=== PATIENT | male | born 1945 | race Caucasian/White ===

== ENCOUNTER → 2017-01-05 | Day surgery (SDC) | payer OTHER, MEDICARE ==
[~2017-01-05] VITALS: Ht 170.2 cm; Wt 88.5 kg
[~2017-01-05] MED LIST: ADVAIR 250-501 EACH; ASPIRIN EC81 M1 PO; ATORVASTATIN CA40 M1 PO; ESCITALOPRAM OX10 MG PO; FENOFIBRATE145 M1 PO; INVOKANA100 M1 PO; JANUVIA100 M1 PO; LOTREL 5-20 MG1 EACH PO; METFORMIN HCL1000 M3 PO; METOPROLOL SUC100 M2 PO
--- NOTE | 2017-01-05 10:55 | Operative Report ---
Operative/Inv Procedure Report Surgery Date: 01/05/17 Name of Procedure: Cataract extraction lens implantation left eye Pre-Operative Diagnosis: Age-related cataract left eye 20/25 vision 20/100 glare vision Post-Operative Diagnosis: Same Estimated Blood Loss: none Surgeon/Pot Fireman: TRACE RIVERA,IVY Horowitz Anesthesia: local monitored anesthesi Complications: None Operative/Procedure Note Note: The patient was brought to the operating room standard monitoring equipment was attached the patient was prepped and draped in the usual fashion for intraocular surgery. A lid speculum was placed to retract the lids. The case was begun by making a temporal incision with a 2.4 mm keratome. The eye was stabilized with a Ford ring during this incision. 1 mL of non-preserved lidocaine was introduced into the anterior chamber to provide anesthesia. The anterior chamber was then filled and deepened with viscoelastic. A curvilinear capsulorrhexis was achieved using a 30-gauge needle and is a cystotome and capsulorrhexis was finished using a Utrata forceps. A second or paracentesis incision was made temporally with a 1 mm MVR blade. The lens was then hydrodissected with balanced salt solution and found to be rotatable. The lens was emulsified using phacoemulsification and a modified four-quadrant cracking technique. The residual cortical material was removed using automated irrigation and aspiration and as much of the anterior capsular rim was cleaned as well as possible. The posterior capsule was cleaned first with the automated machine on a low setting and then manually with a Adan squeegee. The capsular bag was deepened with viscoelastic. The lens a Akreos AO 60 21.5 Diopter placed into the bag under direct visualization and rotated so that the haptics were at 12 and 6:00. Viscoelastic was then removed from the eye by flushing it out and then by automated irrigation and aspiration. The eye was pressurized to a normal tone. 1/10 of a cc of vancomycin solution was introduced into the anterior chamber to provide antibiotic prophylaxis. The wounds were sealed by hydrating the stroma adjacent to them and the eye was left at a proper tone after the wounds were checked and found not to be leaking. The lid speculum was removed from the orbit. Antibiotic and steroid drops were placed on the eye and then the eye was shielded. Monitoring equipment was removed from the patient and the patient was removed from the operative suite to the holding area. The patient tolerated the procedure well and will be seen in the office tomorrow.
== END ==
LOC: STS 01:47
DX: H25.9 Unspecified age-related cataract (principal); J45.909 Unspecified asthma, uncomplicated; I10 Essential (primary) hypertension; I25.10 Atherosclerotic heart disease of native coronary artery without angina pectoris; Z95.1 Presence of aortocoronary bypass graft
CPT/HCPCS: J2250; V2632

== ENCOUNTER → 2017-01-20 | Day surgery (SDC) | payer OTHER, MEDICARE ==
[~2017-01-20] VITALS: Ht 170.2 cm; Wt 88.5 kg
--- NOTE | 2017-01-20 12:18 | Operative Report ---
Operative/Inv Procedure Report Surgery Date: 01/20/17 Name of Procedure: Cataract extraction lens implantation right eye Pre-Operative Diagnosis: Age-related cataract right eye 20/25 vision 20/50 glare vision Post-Operative Diagnosis: Same Estimated Blood Loss: none Surgeon/Mobility Specialist: TRACE RIVERA,IVY Horowitz Anesthesia: local monitored anesthesi Complications: None Operative/Procedure Note Note: The patient was brought to the operating room standard monitoring equipment was attached the patient was prepped and draped in the usual fashion for intraocular surgery. A lid speculum was placed to retract the lids. The case was begun by making 2 partial-thickness corneal relaxing incisions at 67. A temporal incision with a 2.4 mm keratome. The eye was stabilized with a Ford ring during this incision. 1 mL of non-preserved lidocaine was introduced into the anterior chamber to provide anesthesia. The anterior chamber was then filled and deepened with viscoelastic. A curvilinear capsulorrhexis was achieved using a 30-gauge needle and is a cystotome and capsulorrhexis was finished using a Utrata forceps. A second or paracentesis incision was made temporally with a 1 mm MVR blade. The lens was then hydrodissected with balanced salt solution and found to be rotatable. The lens was emulsified using phacoemulsification and a modified four-quadrant cracking technique. The residual cortical material was removed using automated irrigation and aspiration and as much of the anterior capsular rim was cleaned as well as possible. The posterior capsule was cleaned first with the automated machine on a low setting and then manually with a Adan squeegee. The capsular bag was deepened with viscoelastic. The lens a Akreos AO60 21.5 Diopter placed into the bag under direct visualization and rotated so that the haptics were at 12 and 6:00. Viscoelastic was then removed from the eye by flushing it out and then by automated irrigation and aspiration. The eye was pressurized to a normal tone. 1/10 of a cc of vancomycin solution was introduced into the anterior chamber to provide antibiotic prophylaxis. The wounds were sealed by hydrating the stroma adjacent to them and the eye was left at a proper tone after the wounds were checked and found not to be leaking. The lid speculum was removed from the orbit. Antibiotic and steroid drops were placed on the eye and then the eye was shielded. Monitoring equipment was removed from the patient and the patient was removed from the operative suite to the holding area. The patient tolerated the procedure well and will be seen in the office tomorrow.
== END ==
LOC: STS 01:54
DX: H25.9 Unspecified age-related cataract (principal); E11.9 Type 2 diabetes mellitus without complications; Z79.84 Long term (current) use of oral hypoglycemic drugs; I10 Essential (primary) hypertension; I25.10 Atherosclerotic heart disease of native coronary artery without angina pectoris
CPT/HCPCS: J2250; V2632; V2788-GY

== ENCOUNTER 2017-10-23 12:55 | Inpatient (IN) | payer OTHER, MEDICARE ==
[~2017-10-23] VITALS: Ht 172.7 cm; Wt 88.5 kg
[~2017-10-23 12:55] MED LIST changes: -ADVAIR 250-501 EACH; +ADVAIR 250-501 EACH INH
--- NOTE | 2017-10-23 14:16 | ED INFLUENZA/URI COMPLAINT ---
History of Present Illness General Chief Complaint: General Adult Stated Complaint: ?FLU, HEADACHE, BODY ACHES, DIAREHHA, FEVER Source: patient Exam Limitations: no limitations Vital Signs & Intake/Output Vital Signs & Intake/Output Vital Signs Date Time Temp Pulse Resp B/P B/P Pulse O2 O2 Flow FiO2 Mean Ox Delivery Rate 10/24 1026 94 Nasal 2.0L Cannula 10/24 1022 Nasal 2.0L Cannula 10/24 0824 86 120/70 10/24 0800 94 Nasal 2.0L Cannula 10/24 0630 97.6 86 22 120/70 92 Nasal 2.0L Cannula 10/23 2353 128/74 92 Nasal 2.0L Cannula 10/23 2318 98.1 96 18 95 Nasal Cannula 10/23 2217 Nasal 2.0L Cannula 10/23 2037 98 132/78 10/23 1846 97.5 91 18 132/78 94 Nasal 2.0L Cannula 10/23 1800 Nasal 2.0L Cannula 10/23 1626 99.9 10/23 1623 99.9 103 18 121/55 95 Nasal 2.0L Cannula 10/23 1603 Room Air Room Air 10/23 1450 96 ED Intake and Output 10/24 0000 10/23 1200 Intake Total 780 Output Total 450 Balance 330 Intake, IV 300 Intake, Oral 480 Number 0 Bowel Movements Output, Urine 450 Patient 195 lb Weight Weight Reported by Patient Measurement Method Allergies Coded Allergies: bee venom protein (honey bee) (HIVES, DYSPNEA 10/23/17) codeine (UNKNOWN 10/23/17) oxycodone (From PERCOCET) (UNKNOWN 10/23/17) Uncoded Allergies: RED BIRCH (RASH 09/20/13) Reconcile Medications Albuterol Sulfate (Ventolin Hfa) 90 MCG HFA.AER.AD 2 PUF INH AD PRN RESP ( Reported) Amlodipine Besylate/Benazepril (Lotrel 5-20 MG Capsule) 5 MG-20 MG CAPSULE 1 CAP PO DAILY HTN (Reported) Aspirin (Ecotrin*) 81 MG TABLET.DR 1 TAB PO DAILY PROPHO (Reported) Canagliflozin (Invokana) 100 MG TABLET 1 TAB PO DAILY DM II (Reported) Cholecalciferol (Vitamin D3) (Vitamin D) 10,000 UNIT CAPSULE 1 CAP PO DAILY SUPPLEMENT (Reported) Cyanocobalamin (Vitamin B-12) (Cyanocobalamin Injection) 1,000 MCG/ML VIAL 1 ML IM Q2W SUPPLEMENT (Reported) Escitalopram Oxalate 10 MG TABLET 1 TAB PO DAILY ANXIETY (Reported) Fenofibrate Nanocrystallized (Fenofibrate) 145 MG TABLET 1 TAB PO DAILY TRIGLYCERIDES (Reported) Fluticasone/Salmeterol (Advair 250-50 Diskus) 250 MCG-50 MCG/DOSE BLST.W.DEV 1 PUFF INH PRN ASTHMA (Reported) Magnesium Oxide (Magnesium) 400 MG CAPSULE 1 CAP PO DAILY SUPPLEMENT ( Reported) Metformin HCl (Metformin HCl ER) 500 MG TAB.ER.24H 1 TAB PO 4XDAILY DM ( Reported) Metoprolol Succinate 100 MG TAB.ER.24H 1 TAB PO DAILY HTN (Reported) Omeprazole 20 MG CAPSULE.DR 1 CAP PO DAILY GI (Reported) Rosuvastatin Calcium (Crestor) 20 MG TABLET 1 TAB PO DAILY CHOLESTEROL ( Reported) Sitagliptin Phosphate (Januvia) 100 MG TABLET 1 TAB PO DAILY DM II (Reported) Triage Note: PT TO ED FOR SUBJECTIVE FEVER, CHILLS, NAUSEA, DIARRHEA X 12 HOURS. Triage Nurses Notes Reviewed? yes Onset: Gradual Duration: getting worse Timing: recent history Severity: severe Severity Numbers: 7 HPI: Patient is a 72-year-old male with a past history of coronary artery disease status post bypass surgery, diabetes, hypertension, hyperlipidemia COPD/asthma who presents emergency room with a 2 day history of gradual onset of cough chills tactile fevers body aches headache nausea without emesis generally weakness and fatigue Positive for wheezing Patient can tolerate by mouth however has had decreased intake due to symptoms Denies any chest pain and arm pain jaw pain leg swelling hemoptysis shortness of breath dyspnea on exertion Negative sick contacts at home Patient tried Symbicort and nebulizer treatments with minimal relief of wheezing Patient does state that HE WAS GIVEN ZPAK TWO WEEKS AGO FOR URI SYMPTOMS (Goran GUERRA,Sebastián) Past History Travel History Traveled to [place] past 21 day No Medical History Any Pertinent Medical History? see below for history Neurological: NONE EENT: NONE Cardiovascular: hypertension, hyperlipidemia, "BYPASS" Respiratory: asthma, COPD Gastrointestinal: NONE Hepatic: NONE Renal: NONE Musculoskeletal: CHRONIC SHOULDER PAIN Psychiatric: NONE Endocrine: diabetes Blood Disorders: NONE Pneumonia Vaccine: 12/28/06 Surgical History Surgical History: CABG Psychosocial History What is your primary language Sinhala Tobacco Use: Never used ETOH Use: occasional use Illicit Drug Use: denies illicit drug use Family History Hx Contributory? No (Sebastián Sandoval) Review of Systems Review of Systems Constitutional: Reports: see HPI. EENTM: Reports: see HPI. Respiratory: Reports: see HPI. Cardiovascular: Reports: no symptoms. GI: Reports: no symptoms. Genitourinary: Reports: no symptoms. Musculoskeletal: Reports: see HPI. Skin: Reports: no symptoms. Neurological/Psychological: Reports: see HPI, headache. Hematologic/Endocrine: Reports: no symptoms. Immunologic/Allergic: Reports: no symptoms. All Other Systems: Reviewed and Negative (Sebastián Sandoval) Physical Exam Physical Exam General Appearance: no apparent distress, alert, obese Head: atraumatic Eyes: Bilateral: normal appearance, PERRL. Ears, Nose, Throat: normal ENT inspection, moist mucous membrane, hearing grossly normal Neck: normal inspection Respiratory: quiet respiration, decreased breath sounds, wheezing Cardiovascular: regular rate/rhythm Peripheral Pulses: 2+ radial (R) Gastrointestinal: normal bowel sounds, soft, non-tender Extremities: normal inspection, normal capillary refill, normal range of motion, no edema Skin: intact, normal color, warm/dry Core Measures Sepsis Present: Yes Sepsis Focused Exam Completed? Yes (Sebastián Sandoval) Progress Differential Diagnosis: influenza, meningitis, neutropenia, otitis, pneumonia, pharyngitis, sinusitis Plan of Care: Orders Procedure Date/time Status BLOOD CULTURE 10/25 0600 Active CBC WITHOUT DIFFERENTIAL 10/25 0600 Active BASIC ELECTROLYTES PLUS BUN&CR 10/25 0600 Active Consistent Carbohydrate 1 10/24 D Active Consistent Carbohydrate 1 10/24 B Complete RT: Evaluation 10/24 1022 Active CBC WITHOUT DIFFERENTIAL 10/24 0852 Complete BASIC ELECTROLYTES PLUS BUN&CR 10/24 0852 Complete TROPONIN LEVEL 10/24 0300 Complete EKG 10/24 0300 Active LACTIC ACID 10/24 0232 Complete THERAPIST ORDERS 10/24 UNK Complete Admit to inpatient 10/24 UNK Active ECHOCARDIOGRAM 10/24 UNK Active Consistent Carbohydrate 1 10/23 B Complete LACTIC ACID 10/23 2332 Complete TROPONIN LEVEL 10/23 2100 Complete EKG 10/23 2100 Active Vital Signs 10/23 1946 Active Teach/Educate 10/23 1946 Active Pain Treatment and Response 10/23 1946 Active Nutritional Intake, Monitor 10/23 1946 Active Isolation 10/23 1946 Active Intake & Output 01/13 1947 Active Patient Care Conference 10/23 1947 Active Activity/Ambulation 10/23 1947 Active LACTIC ACID 10/23 1800 Complete STREP PNEUMO URINARY ANTIGEN 10/23 1748 Complete LEGIONELLA URINARY ANTIGEN 10/23 1748 Complete URINALYSIS 10/23 1748 Complete Pathway - chart 10/23 1710 Active TRC EVALUATION (GEN) 10/23 1708 Complete OXYGEN SETUP (GEN) 10/23 1708 Active Pathway - chart 10/23 1708 Active House Staff 10/23 1708 Active FingerStick- Glucose 10/23 1613 Active Patient Data 10/23 1607 Active Add-on Test (ER Only) 10/23 1606 Active ED Holding Orders 10/23 1600 Active Admit to inpatient 10/23 1600 Active Vital Signs 10/23 1600 Active Code Status 10/23 1600 Active Add-on Test (ER Only) 10/23 1543 Active Intake & Output 10/23 1521 Complete LACTIC ACID 10/23 1505 Complete D-DIMER 10/23 1505 Complete AEROSOL (GEN) 10/23 1456 Complete BLOOD CULTURE 10/23 1427 Active TROPONIN LEVEL 10/23 1427 Complete COMPREHENSIVE METABOLIC PANEL 10/23 1427 Complete CBC WITHOUT DIFFERENTIAL 10/23 1427 Complete EKG 10/23 1427 Active VIRAL CULTURE 10/23 1304 Active VTE Mechanical Prophylaxis 10/23 UNK Active Vital Signs 10/23 UNK Complete Intake & Output 10/23 UNK Complete FingerStick- Glucose 10/23 UNK Complete Current Medications Sig/Sidney Start time Last Medication Dose Stop Time Status Admin Atorvastatin Calcium 80 MG 1700 10/24 1700 AC (Lipitor) Azithromycin 500 MG DAILY@1600 10/24 1600 CAN (Zithromax) Sodium Chloride 250 ML (Normal Saline 0.9%) Ceftriaxone Sodium 1,000 MG DAILY@1530 10/24 1530 AC (Rocephin) Albuterol Sulfate 3 ML Q4P PRN 10/24 1030 AC (Proventil) Budesonide/ 2 PUF BID 10/23 2200 AC 10/24 Formoterol Fumarate 0825 (Symbicort) Heparin Sodium 5,000 UNIT Q8 10/23 2200 AC 10/24 (Porcine) 0609 Methylprednisolone 40 MG Q8 10/23 2200 AC 10/24 (Solumedrol) 0609 Metoprolol Tartrate 50 MG BID 10/230 AC 10/24 (Lopressor) 0824 Sodium Chloride 1,000 ML Q10H 10/23 1999 AC 10/24 (Normal Saline 0.9%) 10/24 1559 0338 Magnesium Oxide 400 MG DAILY 10/23 1817 AC 10/24 (Mag-Ox) 0823 Omeprazole 20 MG DAILY 10/23 1817 AC 10/24 (Prilosec) 0824 Aspirin Buffered 81 MG DAILY 10/23 1816 AC 10/24 (Ecotrin) 0824 Escitalopram Oxalate 10 MG DAILY 10/23 1816 AC 10/24 (Lexapro) 0824 Fenofibrate 145 MG DAILY 10/23 1816 AC 10/24 (Tricor) 0824 Acetaminophen 650 MG Q6 PRN 10/23 171 AC (Tylenol) Laboratory Tests 10/24/17 1100: Anion Gap 18 H, Estimated GFR 60, BUN/Creatinine Ratio 22.5, CBC w Diff MAN DIFF ORDERED, RBC 4.84, MCV 92.4, MCH 30.6, RDW 14.1, MPV 8.9, Gran % 96.7 H, Lymphocytes % 2.0 L, Monocytes % 1.2 L, Eosinophils % 0, Basophils % 0.1, Absolute Granulocytes 24.3 H, Segmented Neutrophils 65, Band Neutrophils 27 H, Absolute Lymphocytes 0.5 L, Lymphocytes 4 L, Monocytes 4, Absolute Monocytes 0.3, Absolute Eosinophils 0, Absolute Basophils 0, Normocytic RBCs VERIFIED, Normochromic RBCs VERIFIED, PUBS MCHC 33.1 10/24/17 0310: Troponin I < 0.01 10/24/17 0310: Lactic Acid 1.5 10/23/17 2345: Lactic Acid 2.9 H 10/23/17 2150: Troponin I < 0.01, Urine Color YEL, Urine Clarity CLEAR, Urine pH 6.0, Ur Specific [place] 1.020, Urine Protein NEG, Urine Ketones 15 H, Urine Nitrite NEG, Urine Bilirubin NEG, Urine Urobilinogen 0.2, Ur Leukocyte Esterase NEG, Ur Microscopic SEDIMENT EXAMINED, Urine RBC 1-3, Urine WBC RARE, Ur Epithelial Cells RARE, Urine Hemoglobin SMALL H, Urine Glucose >=1000 H 10/23/17 1940: Lactic Acid 3.3 H 10/23/17 1505: Anion Gap 18 H, Estimated GFR 46 L, BUN/Creatinine Ratio 17.3, Glucose 130 H, Lactic Acid 4.2 H, Calcium 9.7, Total Bilirubin 1.8 H, AST 24, ALT 49, Alkaline Phosphatase 42, Troponin I < 0.01, Total Protein 6.7, Albumin 4.0, Globulin 2.7, Albumin/Globulin Ratio 1.5, D-Dimer High Sensitivty 213, CBC w Diff MAN DIFF ORDERED, RBC 5.10, MCV 90.7, MCH 29.5, RDW 14.2, MPV 8.0, Gran % 94.0 H, Lymphocytes % 2.0 L, Monocytes % 3.9, Eosinophils % 0, Basophils % 0.1 , Absolute Granulocytes 20.3 H, Segmented Neutrophils 87 H, Band Neutrophils 4 , Absolute Lymphocytes 0.4 L, Lymphocytes 6 L, Monocytes 3, Absolute Monocytes 0.8 H, Absolute Eosinophils 0, Absolute Basophils 0, Platelet Estimate ADEQUATE , Normocytic RBCs VERIFIED, Normochromic RBCs VERIFIED, Stomatocytes RARE, PUBS MCHC 32.6 L Microbiology 10/23 2149 URINE ROUT: Legionella Antigen - COMP 10/23 2149 URINE ROUT: Streptococcus pneumoniae Antigen (M - COMP STREP PNEUMO BACTERIAL AG 10/23 1516 BLOOD: Blood Culture - RES GRAM POSITIVE COCCI 10/23 1505 BLOOD: Blood Culture - RES GRAM POSITIVE COCCI 10/23 1427 LOWER RESP: Respiratory Culture - CAN Cancelled: SPECIMEN NOT RECEIVED IN LABORATORY 10/23 1426 LOWER RESP: Gram Stain - CAN Cancelled: SPECIMEN NOT RECEIVED IN LABORATORY Patient on initial examination was noted to be febrile no respiratory distress however does have audible wheezing Due to patient's wheezing and noted infiltrate pneumonia on chest x-ray and T- wave inversions patient will be admitted to telemetry Patient on admission has concerns of sepsis origin pneumonia no concerns of septic shock at this time IV fluid resuscitation was gvien with IV antibiotics CAP Diagnostic Imaging: Viewed by Me: Radiology Read. Radiology Impression: acute abnormality CXR Impression: pneumomia Initial ED EK bpm, noted inversion of t-waves in lead II AND LATERAL LEADS Comments: PATIENT: MARIELOS ALVAREZ PRESENT AGE: 72 PATIENT ACCOUNT NO: [id number] : 46 LOCATION: [facility] ORDERING PHYSICIAN: Sebastián GUERRA SERVICE DATE: 10/23/17 EXAM TYPE: RAD - XRY-CHEST XRAY, TWO VIEWS EXAMINATION: XR CHEST CLINICAL INFORMATION: Fever, cough COMPARISON: 05/18/2013 TECHNIQUE: 2 views of the chest were obtained. FINDINGS: There is a rounded new opacity likely within the superior segment of the right lower lobe suspicious for pneumonia. The lungs otherwise appear clear. No pleural effusion. The patient is status post median sternotomy. There is persistent fracture of the second sternal wire, unchanged compared to 2013. Partial fracture of the third sternal wire also appears to be a stable finding. Multilevel degenerative changes of the visualized thoracic spine are evident. IMPRESSION: Findings suspicious for pneumonia involving the superior segment of the right lower lobe. Recommend repeat exam in 4-6 weeks to confirm interval resolution after treatment. DICTATED BY: Carola Lowery MD DATE/TIME DICTATED:10/23/17 (Sebastián Sandoval) Departure Departure Disposition: STILL A PATIENT Condition: Stable Clinical Impression Primary Impression: Pneumonia Secondary Impressions: COPD exacerbation, Sepsis, T wave inversion in EKG Referrals: Mayra Walker APRN (PCP/Family) Departure Forms: Customer Survey General Discharge Information Admission Note Spoke With: Mena Kaba MD Documentation of Exam: Documentation of any treatments & extenuating circumstances including Concerns Regarding Discharge (functional status, medication knowledge or non-compliance, living conditions, etc.) that warrant an admission rather than observation: [ Patient requires telemetry monitoring for T-wave inversions noted on EKG that are new, patient also requires pulmonary consultation cardiology consultation IV antibiotics and repeat nebulizer treatments, IV steroids, and IV fluid resuscitation] (Sebastián Sandoval) PA/EARTH SCIENCE PROFESSOR Co-Sign Statement Statement: ED Attending supervision documentation- [X] I saw and evaluated the patient. I have also reviewed all the pertinent lab results and diagnostic results. I agree with the findings and the plan of care as documented in the PA's/EARTH SCIENCE PROFESSOR's documentation. [X] I have reviewed the ED Record and agree with the PA's/EARTH SCIENCE PROFESSOR's documentation. [] Additions or exceptions (if any) to the PAs/EARTH SCIENCE PROFESSOR's note and plan are summarized below: [] (Sagar RIVERA,Alena) ED Sepsis Exam Date of Focused Sepsis Exam: 10/23/17 Time of Focused Sepsis Exam: 1509 Sepsis Cardiac Exam: Regular Rate/Rhythm Sepsis Resp Exam: WHEEZING Sepsis Cap Refill Exam: <2 Sec Sepsis Peripheral Pulse Exam: Normal Sepsis Peripheral Pulse Location: Radial Sepsis Skin Color Exam: Normal for Ethnicity Skin Temp/Moisture Exam: Warm/Dry (Sebastián Sandoval) Critical Care Note Critical Care Note Critical Care Time: 30-74 min (Sebastián Sandoval)
[2017-10-23] MEDS ORDERED: CRESTOR20 M2 PO (14:35)
[2017-10-23] MEDS ORDERED: METFORMIN HCL500 M4 PO (14:36)
[2017-10-23] MEDS ORDERED: VENTOLIN HFA18 GM INH (14:37)
[2017-10-23] MEDS ORDERED: OMEPRAZOLE20 M2 PO (14:38)
[2017-10-23] MEDS ORDERED: MAGNESIUM400 M1 PO (14:38)
[2017-10-23] MEDS ORDERED: VITAMIN D10000 UNIT PO (14:38)
[2017-10-23] MEDS ORDERED: CYANOCOBAL1000 MCG/2 IM (14:40)
--- NOTE | 2017-10-23 15:12 | RADIOLOGY REPORT ---
EXAMINATION: XR CHEST CLINICAL INFORMATION: Fever, cough COMPARISON: 05/18/2013 TECHNIQUE: 2 views of the chest were obtained. FINDINGS: There is a rounded new opacity likely within the superior segment of the right lower lobe suspicious for pneumonia. The lungs otherwise appear clear. No pleural effusion. The patient is status post median sternotomy. There is persistent fracture of the second sternal wire, unchanged compared to 2012. Partial fracture of the third sternal wire also appears to be a stable finding. Multilevel degenerative changes of the visualized thoracic spine are evident. IMPRESSION: Findings suspicious for pneumonia involving the superior segment of the right lower lobe. Recommend repeat exam in 4-6 weeks to confirm interval resolution after treatment.
[2017-10-23 15:19] LABS: ABSOLUTE BASOPHIL COUNT 0 /CUMM (0.0-0.2); ABSOLUTE EOSINOPHIL COUNT 0 /CUMM (0.0-0.7); ABSOLUTE GRANULOCYTE CT 20.3 /CUMM (1.4-6.5); ABSOLUTE LYMPH COUNT 0.4 /CUMM (1.2-3.4); ABSOLUTE MONOCYTE COUNT 0.8 /CUMM (0.10-0.60); BASOPHIL % 0.1 % (0.0-2.0); EOSINOPHIL % 0 % (0-5); HEMATOCRIT 46.3 % (42-52); MEAN CORPUSCULAR HGB 29.5 PG (27.0-31.0); MEAN CORPUSCULAR HGB CONC 32.6 G/DL (33.0-37.0); MEAN CORPUSCULAR VOLUME 90.7 FL (80.0-94.0); PLATELET COUNT 218 /CUMM (130-400); RBC DISTRIBUTION WIDTH 14.2 % (11.5-14.5); WHITE BLOOD CELL COUNT 21.6 /CUMM (4.8-10.8)
--- NOTE | 2017-10-23 17:00 | History & Physical ---
Malika Calderon MD,Connor 10/23/17 1700: General Information and HPI MD Statement: I have seen and personally examined MARIELOS ALVAREZ and documented this H&P. The patient is a 72 year old M who presented with a patient stated chief complaint of [fatigue and weakness]. Source of Information: patient, old records Exam Limitations: no limitations History of Present Illness: 72-year-old male with past medical history significant for coronary artery disease status post CABG 2002, history of diabetes mellitus on oral hypoglycemic medications, hyperlipidemia, hypertension, COPD non-oxygen dependent, mild obstructive lung disease and PFTs done in 2011, history of chronic renal insufficiency, history of acute cholecystitis status post laparoscopic cholecystectomy in 2006, reducible left inguinal hernia status post the proximal copy repair in 2008, colonoscopy with polypectomy in 2012, negative for invasive carcinoma, came to emergency department for chief complaint of fever chills and extreme lethargy. According to the patient he was doing fine until yesterday, when he started experiencing muscle aches headaches and sudden bout of diarrhea. She felt extremely lethargic and weak. He did not take his temperature but was feeling warm and had chills yesterday. As his condition was not getting better patient decided to come to emergency department. Patient was treated with Z-Chandler 3 weeks ago. Review of systems positive for dyspnea on exertion and dry cough. Review of system negative for any acute visual changes, palpitations, dizziness, chest pain, nausea, vomiting, abdominal pain, back pain, rash, sick contacts, or lower extremity edema Allergies/Medications Allergies: Coded Allergies: bee venom protein (honey bee) (HIVES, DYSPNEA 10/23/17) codeine (UNKNOWN 10/23/17) oxycodone (From PERCOCET) (UNKNOWN 10/23/17) Uncoded Allergies: RED BIRCH (RASH 09/20/13) Home Med list Albuterol Sulfate (Ventolin Hfa) 90 MCG HFA.AER.AD 2 PUF INH AD PRN RESP ( Reported) Amlodipine Besylate/Benazepril (Lotrel 5-20 MG Capsule) 5 MG-20 MG CAPSULE 1 CAP PO DAILY HTN (Reported) Aspirin (Ecotrin*) 81 MG TABLET.DR 1 TAB PO DAILY PROPHO (Reported) Canagliflozin (Invokana) 100 MG TABLET 1 TAB PO DAILY DM II (Reported) Cholecalciferol (Vitamin D3) (Vitamin D) 10,000 UNIT CAPSULE 1 CAP PO DAILY SUPPLEMENT (Reported) Cyanocobalamin (Vitamin B-12) (Cyanocobalamin Injection) 1,000 MCG/ML VIAL 1 ML IM Q2W SUPPLEMENT (Reported) Escitalopram Oxalate 10 MG TABLET 1 TAB PO DAILY ANXIETY (Reported) Fenofibrate Nanocrystallized (Fenofibrate) 145 MG TABLET 1 TAB PO DAILY TRIGLYCERIDES (Reported) Fluticasone/Salmeterol (Advair 250-50 Diskus) 250 MCG-50 MCG/DOSE BLST.W.DEV 1 PUFF INH PRN ASTHMA (Reported) Magnesium Oxide (Magnesium) 400 MG CAPSULE 1 CAP PO DAILY SUPPLEMENT ( Reported) Metformin HCl (Metformin HCl ER) 500 MG TAB.ER.24H 1 TAB PO 4XDAILY DM ( Reported) Metoprolol Succinate 100 MG TAB.ER.24H 1 TAB PO DAILY HTN (Reported) Omeprazole 20 MG CAPSULE.DR 1 CAP PO DAILY GI (Reported) Rosuvastatin Calcium (Crestor) 20 MG TABLET 1 TAB PO DAILY CHOLESTEROL ( Reported) Sitagliptin Phosphate (Januvia) 100 MG TABLET 1 TAB PO DAILY DM II (Reported) Compliance With Home Meds: GOOD Past History Travel History Traveled to [place] past 21 day No Medical History Neurological: NONE EENT: NONE Cardiovascular: hypertension, hyperlipidemia, "BYPASS" Respiratory: asthma, COPD Gastrointestinal: NONE Hepatic: NONE Renal: NONE Musculoskeletal: CHRONIC SHOULDER PAIN Psychiatric: NONE Endocrine: diabetes Blood Disorders: NONE Pneumonia Vaccine: 12/28/06 Surgical History Surgical History: CABG Past Family/Social History Family History Relations & Conditions if any Relation not specified for: *No pertinent family history Psychosocial History Where do you live? Home ETOH Use: occasional use Illicit Drug Use: denies illicit drug use Review of Systems Review of Systems Constitutional: Reports: chills, fever. Cardiovascular: Denies: chest pain, palpitations. Respiratory: Reports: cough. Denies: short of breath. GI: Denies: abdominal pain, nausea, vomiting. Genitourinary: Denies: dysuria. All Other Systems: Reviewed and Negative Exam & Diagnostic Data Last 24 Hrs of Vital Signs/I&O Vital Signs Date Time Temp Pulse Resp B/P B/P Pulse O2 O2 Flow FiO2 Mean Ox Delivery Rate 10/23 1626 99.9 10/23 1623 99.9 103 18 121/55 95 Nasal 2.0L Cannula 10/23 1603 Room Air Room Air 10/23 1450 96 10/23 1317 100.5 10/23 1307 100.5 96 18 143/76 95 Room Air Intake & Output 10/23 1600 10/23 0800 10/23 0000 Intake Total 0 Output Total Balance 0 Intake, Oral 0 Patient 195 lb Weight Weight Reported by Patient Measurement Method Physical Exam General Appearance Alert, Oriented X3, Cooperative, Obese Skin No Rashes HEENT Atraumatic Neck Supple Cardiovascular Regular Rate, Normal S1, Normal S2 Lungs Wheezing b/l Abdomen Normal Bowel Sounds, Soft, No Tenderness, No Hepatospenomegaly Neurological Normal Speech, Normal Tone, Sensation Intact Extremities No Tenderness/Swelling Last 24 Hrs of Labs/Dwaine: Laboratory Tests 10/23/17 1505: Anion Gap 18 H, Estimated GFR 46 L, BUN/Creatinine Ratio 17.3, Glucose 130 H, Lactic Acid 4.2 H, Calcium 9.7, Total Bilirubin 1.8 H, AST 24, ALT 49, Alkaline Phosphatase 42, Troponin I < 0.01, Total Protein 6.7, Albumin 4.0, Globulin 2.7, Albumin/Globulin Ratio 1.5, D-Dimer High Sensitivty 213, CBC w Diff MAN DIFF ORDERED, RBC 5.10, MCV 90.7, MCH 29.5, RDW 14.2, MPV 8.0, Gran % 94.0 H, Lymphocytes % 2.0 L, Monocytes % 3.9, Eosinophils % 0, Basophils % 0.1 , Absolute Granulocytes 20.3 H, Segmented Neutrophils 87 H, Band Neutrophils 4 , Absolute Lymphocytes 0.4 L, Lymphocytes 6 L, Monocytes 3, Absolute Monocytes 0.8 H, Absolute Eosinophils 0, Absolute Basophils 0, Platelet Estimate ADEQUATE , Normocytic RBCs VERIFIED, Normochromic RBCs VERIFIED, Stomatocytes RARE, PUBS MCHC 32.6 L Microbiology 10/23 1516 BLOOD: Blood Culture - RECD 10/23 1505 BLOOD: Blood Culture - RECD 10/23 1427 LOWER RESP: Respiratory Culture - ORD 10/23 1427 LOWER RESP: Gram Stain - ORD 10/23 1310 NASOPHARYN: Influenza Virus A & B Rapid Smear - COMP Diagnostic Data EKG Results Heart rate 96, no axis deviation, QTC 395, PA 152, T-wave inversion in the 23 and flattening of T waves in aVF, flattening of T waves in pericardial leads CXR Results Findings suspicious for pneumonia involving the superior segment of the right lower lobe. Recommend repeat exam in 4-6 weeks to confirm interval resolution after treatment. Assessment/Plan Assessment: 72-year-old male with past medical history significant for coronary artery disease status post CABG 2002, history of diabetes mellitus on oral hypoglycemic medications, hyperlipidemia, hypertension, COPD non-oxygen dependent, mild obstructive lung disease and PFTs done in 2011, history of chronic renal insufficiency, history of acute cholecystitis status post laparoscopic cholecystectomy in 2006, reducible left inguinal hernia status post the proximal copy repair in 2008, colonoscopy with polypectomy in 2012, negative for invasive carcinoma, came to emergency department for chief complaint of fever chills and extreme lethargy. Vitals in emergency department patient febrile with MAXIMUM TEMPERATURE of 100.5 , tachycardia with heart rate as high 103, no tachypnea, systolic blood pressure 1 / and diastolic blood pressure 55-76, oxygen saturation of 99% on 2 L of nasal cannula. Labs in emergency department significant for leukocytosis 21.6, granulocytes 94, 4 bands, 87 segmented neutrophils, hemoglobin 15.1 and hematocrit 46.3, no significant electrolyte abnormality other than increased anion gap of 18, BUN 26 creatinine 1.5 at baseline, lactic acid 4.2, total bili of 1.8, d-dimer 213. Patient was admitted on telemetry so for the management of following problems Community acquired pneumonia Acute COPD exacerbation Leukocytosis Lactic acidosis Nonspecific T-wave changes Based on patient's temperature, heart rate, suspected source of infection in lungs, and lactic acidosis patient does meet the criteria of severe sepsis. Patient was given ceftriaxone and azithromycin in emergency department. Patient received 3 L of normal saline in emergency department. CURB-65 score 2 points Moderate risk group: 6.8% 30-day mortality will require in patient hospitalization. Admit to General Medicine - Vitals q Shift - Continous pulse oximetry - Trend troponins and EKG - Follow-up echo if required - Send sputum cultures - Follow blood cultures x 2 - Check Legionella and strep Antigen - ABxs for community-acquired pneumonia - TRC nebs as needed - IV lasix if signs of volume overload Patient does have significant wheezing on examination. - Oxygen by nasal canula as required, taper as tolerated - Start Symicort Inhaler 2 puffs inhaler BID - Strat IV Steroids Methylprednisone 40mg Q8 IV - Taper Steroids with clinical improvement - Start 500mg IV Zithromax for COPD exacerbation - TRC Nebs as needed Nonspecific T-wave changes T wave changes could be nonspecific. Differentials would include acute ischemia and third phases of EKG changes and pericarditis. We will trend troponins and EKG given patient's significant cardiac history. We'll also obtain old records. Last Echo was 5 years ago as per the patient. We will obtain another echo. Incase the troponin increases or new ST changes develop, we will get cardio on board urgently. Lactic Acidosis Most likely type A secondary to decreased perfusion. Will re-check after IV hydration Patient is on subcutaneous heparin for DVT prophylaxis Patient is full code Patient is on diabetic diet Patient is on pain management As Ranked By This Provider Problem List: 1. Pneumonia Core Measures/Misc (06/27) Acute Coronary Syndrome ACS Diagnosis: No Congestive Heart Failure Congestive Heart Failure Diagnosis No Cerebrovascular Accident CVA/TIA Diagnosis: No VTE (View Protocol) VTE Risk Factors Age>40 No Mechanical VTE Prophylaxis d/t Other No VTE Pharm Prophylaxis d/t Other Sepsis (View protocol) Sepsis Present: Yes Mena Kaba MD 10/23/172036: Attending MD Review Statement Attending Statement Attending MD Statement: examined this patient, discuss w/resident/PA/APARTMENT GROUNDSKEEPER, agreed w/resident/PA/APARTMENT GROUNDSKEEPER, reviewed EMR data (avail) Attending Assessment/Plan: 72M PMH coronary artery disease status post CABG 2002, history of diabetes mellitus on oral hypoglycemic medications, hyperlipidemia, hypertension, COPD presenting with 1 week of worsening lethargy, malaise, productive cough, and fever, treated with Azithromycin as an outpatient for presumed bronchitis, here with worsening symptoms. Cough with yellow/green sputum, dyspnea, fever, decreased appetite and PO intake for the past two days. Initial labs show WBC 21, lactate 4.2, creatinine 1.5. EKG shows flat T-waves in anterior leads. Right sided rhonchi on exam, patient does not appear ill or septic, comfortable, breathing quietly. 1. Severe sepsis secondary to RLL pneumonia 2. DINESH 3. Lactic acidosis 4. Acute EKG changes Plan - Admit to telemetry - Ceftriaxone and Azithromycin - Sputum and blood cultures, S.pneumo and Legionella antigen - Nebulizer treatments - Mucinex - Serial EKG and troponin - Cardiology consult - Trend lactate q4h until normal - IV hydration - Monitor renal function - Continue home medications, avoiding nephrotoxic meds - DVT PPx
[2017-10-23 18:46] VITALS: BP 132/78
--- NOTE | 2017-10-23 20:41 | Admission Certification ---
Admission Certification Certification Statement - As attending physician, I certify that at the time of - admission, based on clinical presentation, severity of - symptoms, need for further diagnostic testing and - therapeutic interventions, and risk of adverse outcomes - without in-hospital treatment, in my clinical assessment, - this patient requires an acute hospital stay for a minimum - of two nights or longer. I have also considered psychsocial - factors such as support system, advanced age, financial - issues, cognitive issues, and failed out-patient treatments, - past re-admission history, safety of patient, and lack of - compliance as applicable. Specific rationale supporting this admission is: Sepsis secondary to pneumonia
[2017-10-23 23:53] VITALS: BP 128/74
--- NOTE | 2017-10-24 03:00 | Event Note ---
Event Note Event Note: Patient's urine strep antigen is postive and lab informed Dr. Benjamin patient's blood cultures x2 are growing gram positive organism. This is likely Streptococcus pneumoniae. Patient is currently on a third generation cephalosporin, IV ceftriaxone whis covers for Strep pneumoniae. As patient is currently stable and now afebrile on antibiotics, will not broaden coverage at this point and await identification and sensitivities. If patient spike fevers or becomes unstable consider IV Vancomycin.
[2017-10-24 06:30] VITALS: BP 120/70
--- NOTE | 2017-10-24 09:04 | PN- Housestaff ---
See Addendum Subjective Follow-up For: CAP, bacteremia Tele-Events Since Last Visit: NSR 60-90 Subjective: No overnight eevnts. No CP, abd pain, N/V. One loose stool. SOB is improving. Review of Systems Constitutional: Reports: no symptoms. EENTM: Reports: no symptoms. Cardiovascular: Reports: no symptoms. Respiratory: Reports: see HPI. Gastrointestinal: Reports: see HPI. Genitourinary: Reports: no symptoms. Musculoskeletal: Reports: no symptoms. Skin: Reports: no symptoms. Neurological/Psychological: Reports: no symptoms. Hematologic/Endocrine: Reports: no symptoms. Immunologic/Allergic: Reports: no symptoms. Objective Last 24 Hrs of Vital Signs/I&O Vital Signs Date Time Temp Pulse Resp B/P B/P Pulse O2 O2 Flow FiO2 Mean Ox Delivery Rate 10/24 0824 86 120/70 10/24 0630 97.6 86 22 120/70 92 Nasal 2.0L Cannula 10/23 2353 128/74 92 Nasal 2.0L Cannula 10/23 2318 98.1 96 18 95 Nasal Cannula 10/23 2217 Nasal 2.0L Cannula 10/23 2037 98 132/78 10/23 1846 97.5 91 18 132/78 94 Nasal 2.0L Cannula 10/23 1800 Nasal 2.0L Cannula 10/23 1626 99.9 10/23 1623 99.9 103 18 121/55 95 Nasal 2.0L Cannula 10/23 1603 Room Air Room Air 10/23 1450 96 10/23 1317 100.5 10/23 1307 100.5 96 18 143/76 95 Room Air Intake & Output 10/24 1600 10/24 0800 10/24 0000 Intake Total 1040 780 Output Total 450 Balance 1040 330 Intake, IV 800 300 Intake, Oral 240 480 Number 0 0 Bowel Movements Output, Urine 450 Patient 195 lb Weight Physical Exam General Appearance: Alert, Oriented X3, Cooperative, No Acute Distress Skin: No Rashes Cardiovascular: Regular Rate, Normal S1, Normal S2 Lungs: Clear to Auscultation Abdomen: Normal Bowel Sounds, Soft, No Tenderness Extremities: No Edema Current Medications: Current Medications Sig/Sidney Start time Last Medication Dose Route Stop Time Status Admin Acetaminophen 650 MG Q6 PRN 10/23 1715 AC PO Acetaminophen 650 MG ONCE ONE 10/23 1330 DC 10/23 PO 10/23 1331 1317 Albuterol Sulfate 3 ML ONCE ONE 10/23 1430 DC 10/23 INH 10/23 1431 1456 Aspirin Buffered 81 MG DAILY 10/23 1817 AC 10/24 PO 0824 Atorvastatin Calcium 80 MG 1700 10/24 1700 AC PO Azithromycin 500 MG DAILY@1600 10/24 1600 AC Sodium Chloride 250 ML IV Azithromycin 500 MG ONCE ONE 10/23 1515 DC 10/23 Sodium Chloride 250 ML IV 10/23 1614 1555 Budesonide/ 2 PUF BID 10/23 2200 AC 10/24 Formoterol Fumarate INH 0825 Ceftriaxone Sodium 1,000 MG DAILY@1530 10/24 1530 AC IV Ceftriaxone Sodium 0 .STK-MED ONE 10/23 1534 DC .ROUTE Ceftriaxone Sodium 1,000 MG ONCE ONE 10/23 1515 DC 10/23 IV 10/23 1516 1534 Escitalopram Oxalate 10 MG DAILY 10/23 181 AC 10/24 PO 0824 Fenofibrate 145 MG DAILY 10/23 1816 AC 10/24 PO 0824 Heparin Sodium 5,000 UNIT Q8 10/23 2199 AC 10/24 (Porcine) SC 0609 Ipratropium [place] 2.5 ML ONCE ONE 10/23 1430 DC 10/23 INH 10/23 1431 1456 Magnesium Oxide 400 MG DAILY 10/23 181 AC 10/24 PO 0823 Methylprednisolone 40 MG Q8 10/23 2200 AC 10/24 IV 0609 Methylprednisolone 0 .STK-MED ONE 10/23 1507 DC .ROUTE Methylprednisolone 125 MG ONCE ONE 10/23 1430 DC 10/23 IV 10/23 1431 1507 Metoprolol Tartrate 50 MG BID 10/23 2199 AC 10/24 PO 0824 Omeprazole 20 MG DAILY 10/23 181 AC 10/24 PO 0824 Ondansetron HCl 0 .STK-MED ONE 10/23 1507 DC .ROUTE Ondansetron HCl 4 MG ONCE ONE 10/23 1430 DC 10/23 IV 10/23 1431 1507 Sodium Chloride 1,000 ML Q10H 10/23 2000 AC 10/24 IV 10/24 1559 0338 Sodium Chloride 1,000 ML BOLUS ONE 10/23 1615 DC 10/23 IV 10/23 1714 1633 Sodium Chloride 1,000 ML BOLUS ONE 10/23 1615 DC 10/23 IV 10/23 1714 1633 Sodium Chloride 1,000 ML BOLUS ONE 10/23 1430 DC 10/23 IV 10/23 1529 1507 Last 24 Hrs of Lab/Dwaine Results Last 24 Hrs of Labs/Mics: Laboratory Tests 10/24/17 0310: Troponin I < 0.01 10/24/17 0310: Lactic Acid 1.5 10/23/17 2345: Lactic Acid 2.9 H 10/23/172149: Troponin I < 0.01, Urine Color YEL, Urine Clarity CLEAR, Urine pH 6.0, Ur Specific [place] 1.020, Urine Protein NEG, Urine Ketones 15 H, Urine Nitrite NEG, Urine Bilirubin NEG, Urine Urobilinogen 0.2, Ur Leukocyte Esterase NEG, Ur Microscopic SEDIMENT EXAMINED, Urine RBC 1-3, Urine WBC RARE, Ur Epithelial Cells RARE, Urine Hemoglobin SMALL H, Urine Glucose >=1000 H 10/23/17 1940: Lactic Acid 3.3 H 10/23/17 1505: Anion Gap 18 H, Estimated GFR 46 L, BUN/Creatinine Ratio 17.3, Glucose 130 H, Lactic Acid 4.2 H, Calcium 9.7, Total Bilirubin 1.8 H, AST 24, ALT 49, Alkaline Phosphatase 42, Troponin I < 0.01, Total Protein 6.7, Albumin 4.0, Globulin 2.7, Albumin/Globulin Ratio 1.5, D-Dimer High Sensitivty 213, CBC w Diff MAN DIFF ORDERED, RBC 5.10, MCV 90.7, MCH 29.5, RDW 14.2, MPV 8.0, Gran % 94.0 H, Lymphocytes % 2.0 L, Monocytes % 3.9, Eosinophils % 0, Basophils % 0.1 , Absolute Granulocytes 20.3 H, Segmented Neutrophils 87 H, Band Neutrophils 4 , Absolute Lymphocytes 0.4 L, Lymphocytes 6 L, Monocytes 3, Absolute Monocytes 0.8 H, Absolute Eosinophils 0, Absolute Basophils 0, Platelet Estimate ADEQUATE , Normocytic RBCs VERIFIED, Normochromic RBCs VERIFIED, Stomatocytes RARE, PUBS MCHC 32.6 L 10/23/17 1304: Virus Culture Pending Microbiology 10/23 2149 URINE ROUT: Legionella Antigen - COMP 10/23 2149 URINE ROUT: Streptococcus pneumoniae Antigen (M - COMP STREP PNEUMO BACTERIAL AG 10/23 1516 BLOOD: Blood Culture - RES GRAM POSITIVE COCCI 10/23 1505 BLOOD: Blood Culture - RES GRAM POSITIVE COCCI 10/23 1427 LOWER RESP: Respiratory Culture - COLB 10/23 1427 LOWER RESP: Gram Stain - COLB 10/23 1310 NASOPHARYN: Influenza Virus A & B Rapid Smear - COMP Assessment/Plan Assessment: 72-year-old male with past medical history significant for coronary artery disease status post CABG 2002, history of diabetes mellitus on oral hypoglycemic medications, hyperlipidemia, hypertension, COPD non-oxygen dependent, mild obstructive lung disease and PFTs done in 2011, history of chronic renal insufficiency, history of acute cholecystitis status post laparoscopic cholecystectomy in 2006, reducible left inguinal hernia status post the proximal copy repair in 2008, colonoscopy with polypectomy in 2012, negative for invasive carcinoma, here with community acquired pneumonia and COPD exacerbation. Problems: Community acquired pneumonia Acute COPD exacerbation Lactic acidosis Nonspecific T-wave changes Based on patient's temperature, heart rate, suspected source of infection in lungs, and lactic acidosis patient does meet the criteria of severe sepsis. Patient was given ceftriaxone and azithromycin in emergency department. Patient received 3 L of normal saline in emergency department. CURB-65 score 2 points Moderate risk group: 6.8% 30-day mortality will require in patient hospitalization. EKG and troponins 3 negative. Blood cultures 2 growing gram- positive cocci and change in urine strep antigen is positive. Lactic acidosis has resolved. - Continous pulse oximetry - Follow-up echo if required -Ceftriaxone and azithromycin - TRC nebs as needed -Repeat blood cultures in 24 hours - Symicort Inhaler 2 puffs inhaler BID - Taper Steroids with clinical improvement Nonspecific T-wave change T wave changes could be nonspecific. Differentials would include acute ischemia and third phases of EKG changes and pericarditis. We'll also obtain old records. Last Echo was 5 years ago as per the patient. We will obtain another echo. EKG and troponins 3 negative. has had no chest pain. -Continue monitor Patient is on subcutaneous heparin for DVT prophylaxis Patient is full code Patient is on diabetic diet Patient is on pain management Problem List: 1. Pneumonia Pain Ratin Pain Location: none Pain Goal: Remain pain free Pain Plan: see a/p Tomorrow's Labs & Rationales: cbc, bep
[2017-10-24 11:42] LABS: ABSOLUTE BASOPHIL COUNT 0 /CUMM (0.0-0.2); ABSOLUTE EOSINOPHIL COUNT 0 /CUMM (0.0-0.7); ABSOLUTE GRANULOCYTE CT 24.3 /CUMM (1.4-6.5); ABSOLUTE LYMPH COUNT 0.5 /CUMM (1.2-3.4); ABSOLUTE MONOCYTE COUNT 0.3 /CUMM (0.10-0.60); BASOPHIL % 0.1 % (0.0-2.0); EOSINOPHIL % 0 % (0-5); GRANULOCYTE % 96.7 % (42.2-75.2); HEMATOCRIT 44.7 % (42-52); MEAN CORPUSCULAR HGB 30.6 PG (27.0-31.0); MEAN CORPUSCULAR HGB CONC 33.1 G/DL (33.0-37.0); MEAN CORPUSCULAR VOLUME 92.4 FL (80.0-94.0); MEAN PLATELET VOLUME 8.9 FL (7.4-10.4); PLATELET COUNT 175 /CUMM (130-400); RBC DISTRIBUTION WIDTH 14.1 % (11.5-14.5); RED BLOOD CELL CT 4.84 /CUMM (4.70-6.10); WHITE BLOOD CELL COUNT 25.1 /CUMM (4.8-10.8)
[2017-10-24 14:48] VITALS: BP 122/68
--- NOTE | 2017-10-24 15:07 | Cons- Cardiology ---
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 The patient's past medical history significant for coronary artery disease, history of bypass surgery in 2002, diabetes, hyperlipidemia, hypertension, COPD, chronic renal insufficiency, etc. The patient is in the hospital with increasing myalgias, loose stool, and cough. He had associated lethargy and weakness. On admission, he was noted to have a right sided infiltrate on his chest x-ray. He had associated low-grade fever and elevated white count was admitted to the hospital for further treatment of community-acquired pneumonia. Subsequent, he was noted to have strep pneumo coccal antigen in his urine and blood cultures positive for gram-positive cocci. Final identification of the blood culture bacteria is pending. The patient was noted to the hospital for treatment of his pneumonia and associated bacteremia. The patient was noted to have nonspecific ST abnormalities on his ECG with no associated cardiac symptoms and serially negative troponins. Allergies/Medications Allergies: Coded Allergies: bee venom protein (honey bee) (HIVES, DYSPNEA 10/23/17) codeine (UNKNOWN 10/23/17) oxycodone (From PERCOCET) (UNKNOWN 10/23/17) Uncoded Allergies: RED BIRCH (RASH 09/20/13) Home Med List: Albuterol Sulfate (Ventolin Hfa) 90 MCG HFA.AER.AD 2 PUF INH AD PRN RESP ( Reported) Amlodipine Besylate/Benazepril (Lotrel 5-20 MG Capsule) 5 MG-20 MG CAPSULE 1 CAP PO DAILY HTN (Reported) Aspirin (Ecotrin*) 81 MG TABLET.DR 1 TAB PO DAILY PROPHO (Reported) Canagliflozin (Invokana) 100 MG TABLET 1 TAB PO DAILY DM II (Reported) Cholecalciferol (Vitamin D3) (Vitamin D) 10,000 UNIT CAPSULE 1 CAP PO DAILY SUPPLEMENT (Reported) Cyanocobalamin (Vitamin B-12) (Cyanocobalamin Injection) 1,000 MCG/ML VIAL 1 ML IM Q2W SUPPLEMENT (Reported) Escitalopram Oxalate 10 MG TABLET 1 TAB PO DAILY ANXIETY (Reported) Fenofibrate Nanocrystallized (Fenofibrate) 145 MG TABLET 1 TAB PO DAILY TRIGLYCERIDES (Reported) Fluticasone/Salmeterol (Advair 250-50 Diskus) 250 MCG-50 MCG/DOSE BLST.W.DEV 1 PUFF INH PRN ASTHMA (Reported) Magnesium Oxide (Magnesium) 400 MG CAPSULE 1 CAP PO DAILY SUPPLEMENT ( Reported) Metformin HCl (Metformin HCl ER) 500 MG TAB.ER.24H 1 TAB PO 4XDAILY DM ( Reported) Metoprolol Succinate 100 MG TAB.ER.24H 1 TAB PO DAILY HTN (Reported) Omeprazole 20 MG CAPSULE.DR 1 CAP PO DAILY GI (Reported) Rosuvastatin Calcium (Crestor) 20 MG TABLET 1 TAB PO DAILY CHOLESTEROL ( Reported) Sitagliptin Phosphate (Januvia) 100 MG TABLET 1 TAB PO DAILY DM II (Reported) Current Medications: Current Medications Sig/Sidney Start time Last Medication Dose Route Stop Time Status Admin Acetaminophen 650 MG Q6 PRN 10/23 1715 AC PO Albuterol Sulfate 3 ML Q4P PRN 10/24 1030 AC INH Aspirin Buffered 81 MG DAILY 10/23 PO 0824 Atorvastatin Calcium 80 MG 1700 10/24 1700 AC PO Azithromycin 500 MG DAILY@1600 10/24 1600 CAN Sodium Chloride 250 ML IV Azithromycin 500 MG ONCE ONE 10/23 1515 DC 10/23 Sodium Chloride 250 ML IV 10/23 1614 1555 Budesonide/ 2 PUF BID 10/23 2199 AC 10/24 Formoterol Fumarate INH 0825 Ceftriaxone Sodium 1,000 MG DAILY@1530 10/24 1530 AC IV Ceftriaxone Sodium 0 .STK-MED ONE 10/23 1534 DC .ROUTE Ceftriaxone Sodium 1,000 MG ONCE ONE 10/23 1515 DC 10/23 IV 10/23 1516 1534 Escitalopram Oxalate 10 MG DAILY 10/23 PO 0824 Fenofibrate 145 MG DAILY 10/23 PO 0824 Heparin Sodium 5,000 UNIT Q8 10/23 (Porcine) SC 1414 Magnesium Oxide 400 MG DAILY 10/23 1817 AC 10/24 PO 0823 Methylprednisolone 40 MG Q8 10/23 IV 1414 Methylprednisolone 0 .STK-MED ONE 10/23 1507 DC .ROUTE Metoprolol Tartrate 50 MG BID 10/23 2199 AC 10/24 PO 0824 Omeprazole 20 MG DAILY 10/23 1818 AC 10/24 PO 0824 Ondansetron HCl 0 .STK-MED ONE 10/23 1507 DC .ROUTE Sodium Chloride 1,000 ML Q10H 10/23 1999 AC 10/24 IV 10/24 1559 0338 Sodium Chloride 1,000 ML BOLUS ONE 10/23 1615 DC 10/23 IV 10/23 1714 1633 Sodium Chloride 1,000 ML BOLUS ONE 10/23 1615 DC 10/23 IV 10/23 1714 1633 Sodium Chloride 1,000 ML BOLUS ONE 10/23 1430 DC 10/23 IV 10/23 1529 1507 Past History Travel History Traveled to [place] past 21 day No Medical History Neurological: NONE EENT: NONE Cardiovascular: hypertension, hyperlipidemia, "BYPASS" Respiratory: asthma, COPD Gastrointestinal: NONE Hepatic: NONE Renal: NONE Musculoskeletal: CHRONIC SHOULDER PAIN Psychiatric: NONE Endocrine: diabetes Blood Disorders: NONE Cancer(s): NONE 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 Home Smoking Status: Former Smoker ETOH Use: occasional use Illicit Drug Use: denies illicit drug use Exam & Diagnostic Data Vital Signs and I&O Vital Signs Date Time Temp Pulse Resp B/P B/P Pulse O2 O2 Flow FiO2 Mean Ox Delivery Rate 10/24 1448 97.6 75 18 122/68 90 Room Air 10/24 1026 94 Nasal 2.0L Cannula 10/24 1022 Nasal 2.0L Cannula 10/24 0824 86 120/70 10/24 0800 94 Nasal 2.0L Cannula 10/24 0630 97.6 86 22 120/70 92 Nasal 2.0L Cannula 10/23 2353 128/74 92 Nasal 2.0L Cannula 10/23 2318 98.1 96 18 95 Nasal Cannula 10/23 2217 Nasal 2.0L Cannula 10/23 2037 98 132/78 10/23 1846 97.5 91 18 132/78 94 Nasal 2.0L Cannula 10/23 1800 Nasal 2.0L Cannula 10/23 1626 99.9 10/23 1623 99.9 103 18 121/55 95 Nasal 2.0L Cannula 10/23 1603 Room Air Room Air Intake & Output 10/24 1600 10/24 0800 10/24 0000 10/23 1600 10/23 0810/23 0000 Intake Total 1040 780 0 Output Total 450 Balance 1040 330 0 Intake, IV 800 300 Intake, Oral 240 480 0 Number 0 0 Bowel Movements Output, Urine 450 Patient 195 lb 195 lb Weight Weight Reported by Patient Measurement Method Physical Exam: General Appearance Alert, Oriented X3, Cooperative, Obese Skin normal HEENT normal Neck Supple, JVP normal, carotid up stroke bilaterally with no bruits Cardiovascular Regular Rate, Normal S1, Normal S2, 1/6 systolic murmur right and left upper sternal border Lungs bilateral rhonchi with scattered expiratory wheezing greater on the right side Abdomen Normal Bowel Sounds, Soft, No Tenderness, No Hepatospenomegaly Neurological Normal/nonfocal Extremities No Tenderness/Swelling Labs/Dwaine Results: Laboratory Tests 10/24 10/24 10/24 10/23 1100 0310 0310 2345 Chemistry Sodium (137 - 145 mmol/L) 142 Potassium (3.5 - 5.1 mmol/L) 4.5 Chloride (98 - 107 mmol/L) 106 Carbon Dioxide (22 - 30 mmol/L) 18 L Anion Gap (5 - 16) 18 H BUN (9 - 20 mg/dL) 27 H Creatinine (0.7 - 1.2 mg/dL) 1.2 Estimated GFR (>60 ml/min) 60 BUN/Creatinine Ratio (7 - 25 %) 22.5 Lactic Acid (0.7 - 2.1 mmol/L) 1.5 2.9 H Troponin I (<0.11 ng/ml) < 0.01 Hematology CBC w Diff MAN DIFF ORDERED WBC (4.8 - 10.8 /CUMM) 25.1 H RBC (4.70 - 6.10 /CUMM) 4.84 Hgb (14.0 - 18.0 G/DL) 14.8 Hct (42 - 52 %) 44.7 MCV (80.0 - 94.0 FL) 92.4 MCH (27.0 - 31.0 PG) 30.6 RDW (11.5 - 14.5 %) 14.1 Plt Count (130 - 400 /CUMM) 175 MPV (7.4 - 10.4 FL) 8.9 Gran % (42.2 - 75.2 %) 96.7 H Lymphocytes % (20.5 - 51.1 %) 2.0 L Monocytes % (1.7 - 9.3 %) 1.2 L Eosinophils % (0 - 5 %) 0 Basophils % (0.0 - 2.0 %) 0.1 Absolute Granulocytes (1.4 - 6.5 /CUMM) 24.3 H Segmented Neutrophils (42.2 - 75.2 %) 65 Band Neutrophils (0.0 - 5.0 %) 27 H Absolute Lymphocytes (1.2 - 3.4 /CUMM) 0.5 L Lymphocytes (20.5 - 51.1 %) 4 L Monocytes (1.7 - 9.3 %) 4 Absolute Monocytes (0.10 - 0.60 /CUMM) 0.3 Absolute Eosinophils (0.0 - 0.7 /CUMM) 0 Absolute Basophils (0.0 - 0.2 /CUMM) 0 Normocytic RBCs VERIFIED Normochromic RBCs VERIFIED PUBS MCHC (33.0 - 37.0 G/DL) 33.1 10/23 10/23 2150 1940 Chemistry Lactic Acid (0.7 - 2.1 mmol/L) 3.3 H Troponin I (<0.11 ng/ml) < 0.01 Urines Urine Color (YEL,AMB,STR) YEL Urine Clarity (CLEAR) CLEAR Urine pH (5.0 - 8.0) 6.0 Ur Specific [place] (1.001 - 1.035) 1.020 Urine Protein (NEG,<30 MG/DL) NEG Urine Ketones (NEG) 15 H Urine Nitrite (NEG) NEG Urine Bilirubin (NEG) NEG Urine Urobilinogen (0.1 - 1.0 EU/dl) 0.2 Ur Leukocyte Esterase (NEG) NEG Ur Microscopic SEDIMENT EXAMINED Urine RBC (0 - 5 /HPF) 1-3 Urine WBC (0 - 2 /HPF) RARE Ur Epithelial Cells (NONE,FEW) RARE Urine Hemoglobin (NEG) SMALL H Urine Glucose (N MG/DL) >=1000 H 10/23 10/23 1505 1304 Chemistry Sodium (137 - 145 mmol/L) 142 Potassium (3.5 - 5.1 mmol/L) 4.6 Chloride (98 - 107 mmol/L) 100 Carbon Dioxide (22 - 30 mmol/L) 23 Anion Gap (5 - 16) 18 H BUN (9 - 20 mg/dL) 26 H Creatinine (0.7 - 1.2 mg/dL) 1.5 H Estimated GFR (>60 ml/min) 46 L BUN/Creatinine Ratio (7 - 25 %) 17.3 Glucose (65 - 99 mg/dL) 130 H Lactic Acid (0.7 - 2.1 mmol/L) 4.2 H Calcium (8.4 - 10.2 mg/dL) 9.7 Total Bilirubin (0.2 - 1.3 mg/dL) 1.8 H AST (17 - 59 U/L) 24 ALT (21 - 72 U/L) 49 Alkaline Phosphatase (< 127 U/L) 42 Troponin I (<0.11 ng/ml) < 0.01 Total Protein (6.3 - 8.2 g/dL) 6.7 Albumin (3.5 - 5.0 g/dL) 4.0 Globulin (1.9 - 4.2 gm/dL) 2.7 Albumin/Globulin Ratio (1.1 - 2.2 %) 1.5 Coagulation D-Dimer High Sensitivty (0 - 243 ng/ml) 213 Hematology CBC w Diff MAN DIFF ORDERED WBC (4.8 - 10.8 /CUMM) 21.6 H RBC (4.70 - 6.10 /CUMM) 5.10 Hgb (14.0 - 18.0 G/DL) 15.1 Hct (42 - 52 %) 46.3 MCV (80.0 - 94.0 FL) 90.7 MCH (27.0 - 31.0 PG) 29.5 RDW (11.5 - 14.5 %) 14.2 Plt Count (130 - 400 /CUMM) 218 MPV (7.4 - 10.4 FL) 8.0 Gran % (42.2 - 75.2 %) 94.0 H Lymphocytes % (20.5 - 51.1 %) 2.0 L Monocytes % (1.7 - 9.3 %) 3.9 Eosinophils % (0 - 5 %) 0 Basophils % (0.0 - 2.0 %) 0.1 Absolute Granulocytes (1.4 - 6.5 /CUMM) 20.3 H Segmented Neutrophils (42.2 - 75.2 %) 87 H Band Neutrophils (0.0 - 5.0 %) 4 Absolute Lymphocytes (1.2 - 3.4 /CUMM) 0.4 L Lymphocytes (20.5 - 51.1 %) 6 L Monocytes (1.7 - 9.3 %) 3 Absolute Monocytes (0.10 - 0.60 /CUMM) 0.8 H Absolute Eosinophils (0.0 - 0.7 /CUMM) 0 Absolute Basophils (0.0 - 0.2 /CUMM) 0 Platelet Estimate (ADEQUATE) ADEQUATE Normocytic RBCs VERIFIED Normochromic RBCs VERIFIED Stomatocytes RARE PUBS MCHC (33.0 - 37.0 G/DL) 32.6 L Serology Virus Culture Pending Diagnostic Data EKG Results Normal sinus rhythm with nonspecific ST-T wave flattening in the anterolateral leads CXR Results IMPRESSION: Findings suspicious for pneumonia involving the superior segment of the right lower lobe. Recommend repeat exam in 4-6 weeks to confirm interval resolution after treatment. Assessment/Plan Assessment/Plan Assessment: 1. Community-acquired pneumonia with leukocytosis and gram-positive bacteremia; probable strep pneumococcal pneumonia 2. Exacerbation of underlying COPD 3. Abnormal ECG with nonspecific ST-T changes-at the moment, the findings on ECG or nonspecific. The patient has no cardiac symptoms. Serial troponins have been negative. 4. Lactic acidosis Recommendations: -Continue current management as per the medical team -Check ECG again in the morning -Continue aggressive respiratory treatment, antibiotics, etc. -For now, I do not believe an echocardiogram is necessary. However, in view of the patient's bacteremia, if there is any evidence to suggest any possible cardiac involvement, a follow-up echo cardiac gram would be necessary. Consult Acknowledgment - Thank you for your consult request.
--- NOTE | 2017-10-24 17:12 | ECHOCARDIOGRAM REPORT ---
MARIELOS ALVAREZ Age: 72 : 1945 Gender: M Exam Date: 10/24/2017 13:17 Exam Location: [address] Ht (in): 68 Wt (lb): 195 BSA: 2.08 BP: 120 / 70 Ordering Physician: Connor Arvizu MD Referring Physician: Javy Munson MD Technologist: Tana Marie [facility] Room Number: [id number] Indications: MYOCARDIAL ISCHEMIA/IN Rhythm: Sinus Technical Quality: fair FINDINGS Left Ventricle Normal global left ventricular size, wall thickness, systolic function with no obvious regional wall motion abnormalities. Normal left ventricular ejection fraction estimated at 60-65%. Right Ventricle Normal right ventricular size and function. Right Atrium Normal right atrial size. Left Atrium Normal left atrial size. Mitral Valve Mild mitral annular calcification. Trace to mild mitral regurgitation. Aortic Valve No aortic valve stenosis or regurgitation. Tricuspid Valve Tricuspid valve is normal in structure and function. Mild-to- moderate tricuspid regurgitation. Right ventricular systolic pressure estimated to be elevated at 45 mmHg. Pulmonic Valve Pulmonic valve not well visualized, grossly normal. Pericardium No pericardial effusion. Great Vessels Normal size aortic root. CONCLUSIONS Normal left and right ventricular systolic function. Mild Pulmonary hypertension. No significant valvular abnormalities. Javy Munson M.D. (Electronically Signed) Final Date: 24 October 2017 17:11 MEASUREMENTS (Male / Female) Normal Values 2D ECHO LV Diastolic Diameter PLAX 5.2 cm 4.2 - 5.9 / 3.9 - 5.3 cm LV Systolic Diameter PLAX 3.1 cm 2.1 - 4.0 cm LV Fractional Shortening PLAX 40.4 % 25 - 46 % LV Ejection Fraction 2D Teich 70.7 % IVS Diastolic Thickness 1.0 cm LVPW Diastolic Thickness 1.0 cm LV Relative Wall Thickness 0.4 RV Internal Dim ED PLAX 3.2 cm 1.9 - 3.8 cm LVOT Diameter 2.1 cm Aortic Root Diameter 3.0 cm LA Systolic Diameter LX 3.6 cm 3.0 - 4.0 / 2.7 - 3.8 cm LA Volume 44.0 cm 18 - 58 / 22 - 52 cm Ascending Aorta Diameter 3.0 cm DOPPLER AV Peak Velocity 127.0 cm/s AV Peak Gradient 6.5 mmHg AV Mean Velocity 95.0 cm/s AV Mean Gradient 4.0 mmHg AV Velocity Time Integral 29.8 cm LVOT Peak Velocity 106.0 cm/s LVOT Peak Gradient 4.5 mmHg LVOT Mean Velocity 74.2 cm/s LVOT Mean Gradient 2.0 mmHg LVOT Velocity Time Integral 23.1 cm LVOT Stroke Volume 80.0 cm AV Area Cont Eq vti 2.7 cm AV Area Cont Eq pk 2.9 cm MV Peak Velocity 114.0 cm/s MV Peak Gradient 5.2 mmHg MV Mean Velocity 64.9 cm/s MV Mean Gradient 2.0 mmHg Mitral E Point Velocity 110.0 cm/s Mitral A Point Velocity 78.0 cm/s Mitral E to A Ratio 1.4 MV PHT Velocity 117.0 cm/s MV Deceleration [place] 793.0 cm/s MV Pressure Half Time 44.3 ms MV Area PHT 5.0 cm MV Deceleration Time 135.0 ms TR Peak Velocity 297.0 cm/s TR Peak Gradient 35.3 mmHg Right Atrial Pressure 5.0 mmHg Pulmonary Artery Systolic Pressu 40.3 mmHg Right Ventricular Systolic Press 40.3 mmHg PV Peak Velocity 92.0 cm/s PV Peak Gradient 3.4 mmHg PV Mean Velocity 69.6 cm/s PV Mean Gradient 2.0 mmHg PV Velocity Time Integral 24.0 cm LV E' Lateral Velocity 8.1 cm/s Mitral E to LV E' Lateral Ratio 13.6 LV E' Septal Velocity 6.3 cm/s Mitral E to LV E' Septal Ratio 17.4
[2017-10-24 23:03] VITALS: BP 118/78
[2017-10-25 06:50] VITALS: BP 138/68
--- NOTE | 2017-10-25 08:54 | PN- Housestaff ---
See Addendum Subjective Follow-up For: cap copd Tele-Events Since Last Visit: nsr [id number] Subjective: patient notes a little sob still, chest tightness on inspiration. chronic shoulder pain. some cough no fever chills no cp. Review of Systems Constitutional: Reports: no symptoms. Respiratory: Reports: cough, short of breath. Musculoskeletal: Reports: joint pain. Objective Last 24 Hrs of Vital Signs/I&O Vital Signs Date Time Temp Pulse Resp B/P B/P Pulse O2 O2 Flow FiO2 Mean Ox Delivery Rate 10/25 1441 98.6 83 18 136/70 92 Nasal Cannula 10/25 1009 77 138/68 10/25 0800 97 Nasal 2.0L Cannula 10/25 0650 97.6 77 20 138/68 90 Nasal Cannula 10/25 0000 95 Nasal 2.0L Cannula 10/24 2303 98.1 92 18 118/78 98 Nasal 2.0L Cannula 10/24 2257 85 120/78 10/24 1830 94 Nasal 2.0L Cannula Intake & Output 10/25 1600 10/25 0800 10/25 0000 Intake Total 500 400 600 Output Total Balance 500 400 600 Intake, Oral 500 400 600 Physical Exam General Appearance: Alert, Oriented X3, Cooperative, No Acute Distress Cardiovascular: Regular Rate, Normal S1, Normal S2, No Murmurs Lungs: Clear to Auscultation, Normal Air Movement Abdomen: Normal Bowel Sounds, Soft, No Tenderness Extremities: Normal Pulses Assessment/Plan Assessment: 72-year-old male with past medical history significant for coronary artery disease status post CABG 2002, history of diabetes mellitus on oral hypoglycemic medications, hyperlipidemia, hypertension, COPD non-oxygen dependent, mild obstructive lung disease and PFTs done in 2011, history of chronic renal insufficiency, history of acute cholecystitis status post laparoscopic cholecystectomy in 2006, reducible left inguinal hernia status post the proximal copy repair in 2008, colonoscopy with polypectomy in 2012, negative for invasive carcinoma, here with community acquired pneumonia and COPD exacerbation. Problems: Community acquired pneumonia Acute COPD exacerbation Lactic acidosis Nonspecific T-wave changes Based on patient's temperature, heart rate, suspected source of infection in lungs, and lactic acidosis patient does meet the criteria of severe sepsis. Patient was given ceftriaxone and azithromycin in emergency department. Patient received 3 L of normal saline in emergency department. CURB-65 score 2 points Moderate risk group: 6.8% 30-day mortality will require in patient hospitalization. EKG and troponins 3 negative. Blood cultures 2 growing gram- positive cocci and change in urine strep antigen is positive. Lactic acidosis has resolved. wbcs have increased but this may be due to steroids. - Continous pulse oximetry - echo Normal left and right ventricular systolic function. Mild Pulmonary hypertension. No significant valvular abnormalities. -Ceftriaxone and azithromycin - TRC nebs as needed -Repeat blood cultures and iuf positive, pt will need gagandeep - Symicort Inhaler 2 puffs inhaler BID - Taper Steroids with clinical improvement now 40mg q12 Nonspecific T-wave change T wave changes could be nonspecific. Differentials would include acute ischemia and third phases of EKG changes and pericarditis. We'll also obtain old records. Last Echo was 5 years ago as per the patient. We will obtain another echo. EKG and troponins 3 negative. has had no chest pain. -Continue monitor Patient is on subcutaneous heparin for DVT prophylaxis Patient is full code Patient is on diabetic diet Patient is on pain management Problem List: 1. Sepsis 2. COPD exacerbation 3. Pneumonia Pain Ratin Pain Location: bilateral shoulder pain Pain Goal: Pain 4 or less Pain Plan: pain pathway Tomorrow's Labs & Rationales: cbc bep
[2017-10-25 09:28] LABS: ABSOLUTE BASOPHIL COUNT 0 /CUMM (0.0-0.2); ABSOLUTE EOSINOPHIL COUNT 0 /CUMM (0.0-0.7); ABSOLUTE GRANULOCYTE CT 16.1 /CUMM (1.4-6.5); ABSOLUTE LYMPH COUNT 0.4 /CUMM (1.2-3.4); ABSOLUTE MONOCYTE COUNT 0.2 /CUMM (0.10-0.60); BASOPHIL % 0 % (0.0-2.0); EOSINOPHIL % 0 % (0-5); GRANULOCYTE % 96.3 % (42.2-75.2); HEMATOCRIT 45.3 % (42-52); MEAN CORPUSCULAR HGB CONC 32.8 G/DL (33.0-37.0); MEAN CORPUSCULAR VOLUME 91.3 FL (80.0-94.0); MEAN PLATELET VOLUME 8.6 FL (7.4-10.4); PLATELET COUNT 241 /CUMM (130-400); RBC DISTRIBUTION WIDTH 14.2 % (11.5-14.5); RED BLOOD CELL CT 4.96 /CUMM (4.70-6.10)
--- NOTE | 2017-10-25 10:03 | PN- Cardiology ---
Subjective Subjective: The patient is awake, alert, feels improved The events of the last 24 hours as well as telemetry were reviewed. Review of Systems: The review of systems is negative for chest pains, palpitations nor lightheadedness. The remainder of the 14 point review of systems is noncontributory with the exception of above. Objective Vital Signs and I&Os Vital Signs Date Time Temp Pulse Resp B/P B/P Pulse O2 O2 Flow FiO2 Mean Ox Delivery Rate 10/25 0650 97.6 77 20 138/68 90 Nasal Cannula 10/25 0000 95 Nasal 2.0L Cannula 10/24 2303 98.1 92 18 118/78 98 Nasal 2.0L Cannula 10/24 2257 85 120/78 10/24 1830 94 Nasal 2.0L Cannula 10/24 1600 Nasal 2.0L Cannula 10/24 1448 97.6 75 18 122/68 90 Room Air 10/24 1026 94 Nasal 2.0L Cannula 10/24 1022 Nasal 2.0L Cannula Intake & Output 10/25 1600 10/25 0800 10/25 0000 10/24 1600 10/24 0800 10/24 0000 Intake Total 400 422 340 9345 780 Output Total 450 Balance 400 569 462 3247 330 Intake, IV 800 300 Intake, Oral 400 600 300 240 480 Number 2 0 0 Bowel Movements Output, Urine 450 Patient 195 lb Weight Physical Exam: General: Nontoxic, no apparent distress. HEENT: Sclera and conjunctiva within normal limits, without xanthelasmas. Neck: Carotids 2+ without bruits. Respiratory: Diffuse rhonchi, air movement is good, without accessory respiratory muscle use. Heart: Regular rate and rhythm, 2/6 systolic ejection with left sternal border, without JVD. Abdomen: Soft, nontender, no masses, normoactive bowel sounds. Extremities: Without clubbing, cyanosis, without edema. Neuro: Nonfocal exam, strength, 5 out of 5 Skin: Within normal limits without lesions. Psych: Mood and affect: Normal Current Medications: Current Medications Sig/Sidney Start time Last Medication Dose Route Stop Time Status Admin Acetaminophen 650 MG Q6 PRN 10/23 1715 AC PO Albuterol Sulfate 3 ML Q4P PRN 10/24 1030 AC INH Aspirin Buffered 81 MG DAILY 10/23 1817 AC 10/24 PO 0824 Atorvastatin Calcium 80 MG 1700 10/24 1700 AC 10/24 PO 1643 Azithromycin 500 MG DAILY@1600 10/24 1600 CAN Sodium Chloride 250 ML IV Budesonide/ 2 PUF BID 10/23 2199 AC 10/24 Formoterol Fumarate INH 2257 Ceftriaxone Sodium 1,000 MG DAILY@1530 10/24 1530 AC 10/24 IV 1643 Escitalopram Oxalate 10 MG DAILY 10/23 1817 AC 10/24 PO 0824 Fenofibrate 145 MG DAILY 10/23 1816 AC 10/24 PO 0824 Heparin Sodium 5,000 UNIT Q8 10/23 2199 AC 10/25 (Porcine) SC 0636 Magnesium Oxide 400 MG DAILY 10/23 181 AC 10/24 PO 0823 Methylprednisolone 40 MG Q8 10/23 2199 AC 10/25 IV 0636 Metoprolol Tartrate 50 MG BID 10/23 2199 AC 10/24 PO 2257 Omeprazole 20 MG DAILY 10/23 1817 AC 10/24 PO 0824 Sodium Chloride 1,000 ML Q10H 10/23 2000 DC 10/24 IV 10/24 1559 0338 Results Last 48 Hrs of Labs/Mics: Laboratory Tests 10/25/17 0910: Anion Gap 16, Estimated GFR 54 L, BUN/Creatinine Ratio 24.6, CBC w Diff Pending , WBC Pending, RBC Pending, Hgb Pending, Hct Pending, MCV Pending, MCH Pending, RDW Pending, Plt Count Pending, MPV Pending, PUBS MCHC Pending 10/24/17 1100: Anion Gap 18 H, Estimated GFR 60, BUN/Creatinine Ratio 22.5, CBC w Diff MAN DIFF ORDERED, RBC 4.84, MCV 92.4, MCH 30.6, RDW 14.1, MPV 8.9, Gran % 96.7 H, Lymphocytes % 2.0 L, Monocytes % 1.2 L, Eosinophils % 0, Basophils % 0.1, Absolute Granulocytes 24.3 H, Segmented Neutrophils 65, Band Neutrophils 27 H, Absolute Lymphocytes 0.5 L, Lymphocytes 4 L, Monocytes 4, Absolute Monocytes 0.3, Absolute Eosinophils 0, Absolute Basophils 0, Normocytic RBCs VERIFIED, Normochromic RBCs VERIFIED, PUBS MCHC 33.1 10/24/17 0310: Troponin I < 0.01 10/24/17 0310: Lactic Acid 1.5 10/23/17 2345: Lactic Acid 2.9 H 10/23/172149: Troponin I < 0.01, Urine Color YEL, Urine Clarity CLEAR, Urine pH 6.0, Ur Specific Gazelle 1.020, Urine Protein NEG, Urine Ketones 15 H, Urine Nitrite NEG, Urine Bilirubin NEG, Urine Urobilinogen 0.2, Ur Leukocyte Esterase NEG, Ur Microscopic SEDIMENT EXAMINED, Urine RBC 1-3, Urine WBC RARE, Ur Epithelial Cells RARE, Urine Hemoglobin SMALL H, Urine Glucose >=1000 H 10/23/17 1940: Lactic Acid 3.3 H 10/23/17 1505: Anion Gap 18 H, Estimated GFR 46 L, BUN/Creatinine Ratio 17.3, Glucose 130 H, Lactic Acid 4.2 H, Calcium 9.7, Total Bilirubin 1.8 H, AST 24, ALT 49, Alkaline Phosphatase 42, Troponin I < 0.01, Total Protein 6.7, Albumin 4.0, Globulin 2.7, Albumin/Globulin Ratio 1.5, D-Dimer High Sensitivty 213, CBC w Diff MAN DIFF ORDERED, RBC 5.10, MCV 90.7, MCH 29.5, RDW 14.2, MPV 8.0, Gran % 94.0 H, Lymphocytes % 2.0 L, Monocytes % 3.9, Eosinophils % 0, Basophils % 0.1 , Absolute Granulocytes 20.3 H, Segmented Neutrophils 87 H, Band Neutrophils 4 , Absolute Lymphocytes 0.4 L, Lymphocytes 6 L, Monocytes 3, Absolute Monocytes 0.8 H, Absolute Eosinophils 0, Absolute Basophils 0, Platelet Estimate ADEQUATE , Normocytic RBCs VERIFIED, Normochromic RBCs VERIFIED, Stomatocytes RARE, PUBS MCHC 32.6 L 10/23/17 1304: Virus Culture Pending Microbiology 10/23 2149 URINE ROUT: Legionella Antigen - COMP 10/23 2149 URINE ROUT: Streptococcus pneumoniae Antigen (M - COMP STREP PNEUMO BACTERIAL AG 10/23 1310 NASOPHARYN: Influenza Virus A & B Rapid Smear - COMP Assessment/Plan Assessment/Plan The patient is a 72-year-old gentle woman with a past medical history of coronary artery disease (status post bypass surgery), diabetes mellitus, hypertension, hyperlipidemia, chronic kidney disease and COPD. He presented with severe sepsis, albeit hemodynamically stable. The source is thought likely secondary to pneumonia. Sepsis: The patient presented with severe sepsis (4/4 SIRS criteria, lactic acidosis, acute on chronic kidney injury). Blood cultures were positive for gram-positive cocci in chains and clusters, and the patient had strep pneumo antigen positive results. He has improved rapidly with antibiotics. A transthoracic echocardiogram did not reveal suspicion for endocarditis; however, if fevers recur or if blood culture repeats are positive, a transesophageal echocardiogram will be necessary. Coronary artery disease: Stable, we will continue his regular outpatient regimen. Hypertension: The patient has been well controlled as an outpatient and we will continue the current regimen and follow. Continue telemetry? Yes
[2017-10-25 10:38] LABS: WHITE BLOOD CELL COUNT 16.7 /CUMM (4.8-10.8)
[2017-10-25 14:41] VITALS: BP 136/70
[2017-10-25 22:57] VITALS: BP 122/72
[2017-10-26 06:55] VITALS: BP 128/80
--- NOTE | 2017-10-26 07:21 | PN- Housestaff ---
Subjective Follow-up For: Sepsis Pneumonia COPD exacerbation Tele-Events Since Last Visit: NSR 61-65 Subjective: Patient visited today, was sitting at the bedside comfortably in no acute distress, was alert and oriented. Reported significant improvement in symptoms, yet still noted shortness of breathing, decreased phlegm. Patient was not febrile but urine antigen was positive for strep pneumo. Day 4 of ceftriaxone and received 1 dose of azithromycin in the first day. Plan for tapering Solu-Medrol to 40 daily. No fever or chills, no chest pain, no other events. Review of Systems Constitutional: Reports: see HPI. Respiratory: Reports: cough, short of breath. Objective Last 24 Hrs of Vital Signs/I&O Vital Signs Date Time Temp Pulse Resp B/P B/P Pulse O2 O2 Flow FiO2 Mean Ox Delivery Rate 10/26 0844 60 124/70 10/26 0800 96 Nasal 2.0L Cannula 10/26 0655 98.4 68 18 128/80 94 Nasal Cannula 10/26 0000 Nasal 2.0L Cannula 10/25 2257 98.1 65 16 122/72 94 10/25 2146 140/68 10/25 2140 95 Nasal 2.0L Cannula 10/25 1441 98.6 83 18 136/70 92 Nasal Cannula Intake & Output 10/26 1600 10/26 0800 10/26 0000 Intake Total 100 Output Total Balance 100 Intake, Oral 100 Physical Exam General Appearance: Alert, Oriented X3, Cooperative, No Acute Distress Skin: No Significant Lesion Skin Temp/Moisture Exam: Warm/Dry Sepsis Skin Exam (color): Normal for Ethnicity HEENT: Atraumatic, EOMI, Mucous Membr. moist/pink Neck: No JVD Cardiovascular: Regular Rate, Normal S1, Normal S2 Lungs: Clear to Auscultation, Normal Air Movement Abdomen: Normal Bowel Sounds, Soft, No Tenderness Neurological: Normal Speech Current Medications: Current Medications Sig/Sidney Start time Last Medication Dose Route Stop Time Status Admin Acetaminophen 650 MG Q6 PRN 10/23 1715 AC PO Albuterol Sulfate 3 ML Q4P PRN 10/24 1030 AC 10/26 INH 1036 Aspirin Buffered 81 MG DAILY 10/23 1817 AC 10/26 PO 0842 Atorvastatin Calcium 80 MG 1700 10/24 1700 AC 10/25 PO 1733 Budesonide/ 2 PUF BID 10/23 2200 AC 10/26 Formoterol Fumarate INH 0841 Ceftriaxone Sodium 1,000 MG DAILY@1530 10/24 1530 AC 10/25 IV 1733 Escitalopram Oxalate 10 MG DAILY 10/23 1816 AC 10/26 PO 0842 Fenofibrate 145 MG DAILY 10/23 1816 AC 10/26 PO 0845 Heparin Sodium 5,000 UNIT Q8 10/23 2200 AC 10/26 (Porcine) SC 0605 Insulin Aspart 0 TIDAC 10/25 1715 AC 10/26 SC 1200 Magnesium Oxide 400 MG DAILY 10/23 181 AC 10/26 PO 0845 Methylprednisolone 40 MG DAILY 10/26 1000 DC IV Methylprednisolone 40 MG BID 10/25 2200 DC 10/26 IV 0841 Metoprolol Tartrate 50 MG BID 10/23 2199 AC 10/26 PO 0844 Omeprazole 20 MG DAILY 10/23 1817 AC 10/26 PO 0845 Prednisone 40 MG DAILY 10/27 1000 AC PO Last 24 Hrs of Lab/Dwaine Results Last 24 Hrs of Labs/Mics: Laboratory Tests 10/26/17 0647: Anion Gap 12, Estimated GFR > 60, BUN/Creatinine Ratio 29.1 H, CBC w Diff NO MAN DIFF REQ, RBC 4.71, MCV 91.4, MCH 30.0, RDW 13.9, MPV 8.8, Gran % 91.4 H, Lymphocytes % 6.3 L, Monocytes % 2.2, Eosinophils % 0, Basophils % 0.1, Absolute Granulocytes 10.5 H, Absolute Lymphocytes 0.7 L, Absolute Monocytes 0.2, Absolute Eosinophils 0, Absolute Basophils 0, PUBS MCHC 32.8 L Assessment/Plan Assessment: 72-year-old male with past medical history significant for coronary artery disease status post CABG 2002, history of diabetes mellitus on oral hypoglycemic medications, hyperlipidemia, hypertension, COPD non-oxygen dependent, mild obstructive lung disease and PFTs done in 2011, history of chronic renal insufficiency, history of acute cholecystitis status post laparoscopic cholecystectomy in 2006, reducible left inguinal hernia status post the proximal copy repair in 2008, colonoscopy with polypectomy in 2012, negative for invasive carcinoma, here with community acquired pneumonia and COPD exacerbation. Sepsis Dyspnea/ Community acquired pneumonia/ Acute COPD exacerbation Based on patient's temperature, heart rate, suspected source of infection in lungs, and lactic acidosis patient did meet the criteria of severe sepsis. Patient was given ceftriaxone and azithromycin in emergency department. Patient received 3 L of normal saline in emergency department. CURB-65 score 2 points Moderate risk group: 6.8% 30-day mortality will require in patient hospitalization. EKG and troponins 3 negative. Blood cultures 2 growing gram-positive cocci and change in urine strep antigen is positive. Lactic acidosis has resolved. WBC continued to decrease. - Continous pulse oximetry - Continue Ceftriaxone Day 4 - Contuinue Soumedrol tapering 40 daily today - TRC nebs as needed - Symicort Inhaler 2 puffs inhaler BID Nonspecific T-wave change T wave changes could be nonspecific. Differentials would include acute ischemia and third phases of EKG changes and pericarditis. We'll also obtain old records. Last Echo was 5 years ago as per the patient. We will obtain another echo. EKG and troponins 3 negative. has had no chest pain. Echo Normal left and right ventricular systolic function. Mild Pulmonary hypertension. No significant valvular abnormalities. -Continue monitor Patient is on subcutaneous heparin for DVT prophylaxis Patient is full code Patient is on diabetic diet Patient is on pain management Problem List: 1. Pneumonia 2. COPD exacerbation 3. Sepsis Pain Ratin Pain Location: None Pain Goal: Pain 4 or less Pain Plan: Contine current plan Tomorrow's Labs & Rationales: CBC
[2017-10-26 07:51] LABS: ABSOLUTE BASOPHIL COUNT 0 /CUMM (0.0-0.2); ABSOLUTE EOSINOPHIL COUNT 0 /CUMM (0.0-0.7); ABSOLUTE GRANULOCYTE CT 10.5 /CUMM (1.4-6.5); ABSOLUTE LYMPH COUNT 0.7 /CUMM (1.2-3.4); ABSOLUTE MONOCYTE COUNT 0.2 /CUMM (0.10-0.60); BASOPHIL % 0.1 % (0.0-2.0); EOSINOPHIL % 0 % (0-5); HEMATOCRIT 43.1 % (42-52); MEAN CORPUSCULAR HGB CONC 32.8 G/DL (33.0-37.0); MEAN CORPUSCULAR VOLUME 91.4 FL (80.0-94.0); MEAN PLATELET VOLUME 8.8 FL (7.4-10.4); PLATELET COUNT 260 /CUMM (130-400); RBC DISTRIBUTION WIDTH 13.9 % (11.5-14.5); RED BLOOD CELL CT 4.71 /CUMM (4.70-6.10); WHITE BLOOD CELL COUNT 11.4 /CUMM (4.8-10.8)
[2017-10-26 08:18] LABS: GRANULOCYTE % 91.4 % (42.2-75.2)
--- NOTE | 2017-10-26 14:19 | PN- Att Addend ---
Attending MD Review Statement Attending Statement Attending MD Statement: examined this patient, discuss w/resident/PA/ENGINE INSTALLER, agreed w/resident/PA/ENGINE INSTALLER, reviewed EMR data (avail), discussed w/nursing, discussed w/ case mgmt Attending Assessment/Plan: Laboratory Tests 10/26/17 0647: Anion Gap 12, Estimated GFR > 60, BUN/Creatinine Ratio 29.1 H, CBC w Diff NO MAN DIFF REQ, RBC 4.71, MCV 91.4, MCH 30.0, RDW 13.9, MPV 8.8, Gran % 91.4 H, Lymphocytes % 6.3 L, Monocytes % 2.2, Eosinophils % 0, Basophils % 0.1, Absolute Granulocytes 10.5 H, Absolute Lymphocytes 0.7 L, Absolute Monocytes 0.2, Absolute Eosinophils 0, Absolute Basophils 0, PUBS MCHC 32.8 L Vital Signs Date Time Temp Pulse Resp B/P B/P Pulse O2 O2 Flow FiO2 Mean Ox Delivery Rate 10/26 0844 60 124/70 10/26 0800 96 Nasal 2.0L Cannula 10/26 0655 98.4 68 18 128/80 94 Nasal Cannula 10/26 0000 Nasal 2.0L Cannula 10/25 2257 98.1 65 16 122/72 94 10/25 2146 140/68 10/25 2140 95 Nasal 2.0L Cannula 10/25 1441 98.6 83 18 136/70 92 Nasal Cannula pneumonia- pts blood culture - strept pneumo and urinary strep pneumo ag is positive. Responding to ceftriaxone and wbc resolving. cont to monitor repeat blood cultures. copd- will switch to po steroids starting tomorrow. cont current managment. DINESH- resolved. cr down to 1.1 today. d/w pt the care plan.
[2017-10-26 15:32] VITALS: BP 130/80
[2017-10-26 23:16] VITALS: BP 142/80
[2017-10-27 06:57] VITALS: BP 138/80
--- NOTE | 2017-10-27 07:37 | PN- Housestaff ---
Subjective Follow-up For: Pneumonia COPD exacerbation Tele-Events Since Last Visit: CHARLENE, ANNI 55-31 Subjective: Patient visited today, pleasant gentleman, was lying in bed comfortably in no acute distress, was alert and oriented. He reported significant improvement in breathing and sputum. No fever or chills, no shortness of breathing, no chest pain, no other events. Patient was saturating well in room air and with ambulation, no complaints and was planned to be discharged. Review of Systems Constitutional: Reports: see HPI. Respiratory: Reports: see HPI, cough, sputum production (Improved). Objective Last 24 Hrs of Vital Signs/I&O Vital Signs Date Time Temp Pulse Resp B/P B/P Pulse O2 O2 Flow FiO2 Mean Ox Delivery Rate 10/27 0904 72 138/80 10/27 0800 92 Room Air 10/27 0657 97.9 60 20 138/80 92 Room Air 10/27 0000 Room Air 10/26 2316 98.6 66 16 142/80 92 Room Air 10/26 2101 64 142/82 10/26 1600 94 Room Air 10/26 1532 97.4 64 20 130/80 96 Intake & Output 10/27 1600 10/27 0800 10/27 0000 Intake Total 240 800 Output Total Balance 240 800 Intake, Oral 240 800 Physical Exam General Appearance: Alert, Oriented X3, Cooperative, No Acute Distress Skin: No Significant Lesion Skin Temp/Moisture Exam: Warm/Dry Sepsis Skin Exam (color): Normal for Ethnicity HEENT: Atraumatic, EOMI, Mucous Membr. moist/pink Neck: Supple, No JVD Cardiovascular: Regular Rate, Normal S1, Normal S2 Lungs: Clear to Auscultation, mild scattered wheezing Abdomen: Soft, No Tenderness Neurological: Normal Speech Current Medications: Current Medications Sig/Sidney Start time Last Medication Dose Route Stop Time Status Admin Acetaminophen 650 MG Q6 PRN 10/23 1715 AC PO Albuterol Sulfate 3 ML Q4P PRN 10/24 1030 AC 10/26 INH 1036 Aspirin Buffered 81 MG DAILY 10/23 1817 AC 10/27 PO 0904 Atorvastatin Calcium 80 MG 1700 10/24 1700 AC 10/26 PO 1737 Budesonide/ 2 PUF BID 10/23 2200 10/27 Formoterol Fumarate INH 0909 Ceftriaxone Sodium 1,000 MG DAILY@1530 10/24 1530 AC 10/26 IV 1545 Escitalopram Oxalate 10 MG DAILY 10/23 1817 AC 10/27 PO 0904 Fenofibrate 145 MG DAILY 10/23 1817 AC 10/27 PO 0909 Heparin Sodium 5,000 UNIT Q8 10/23 2200 AC 10/27 (Porcine) SC 0559 Insulin Aspart 0 TIDAC 10/25 1715 AC 10/26 SC 1736 Magnesium Oxide 400 MG DAILY 10/23 1818 AC 10/27 PO 0905 Methylprednisolone 40 MG DAILY 10/26 1000 DC IV Metoprolol Tartrate 50 MG BID 10/23 2200 AC 10/27 PO 0904 Omeprazole 20 MG DAILY 10/23 1818 AC 10/27 PO 0909 Prednisone 40 MG DAILY 10/27 1000 AC 10/27 PO 0905 Assessment/Plan Assessment: 72-year-old male with past medical history significant for coronary artery disease status post CABG 2002, history of diabetes mellitus on oral hypoglycemic medications, hyperlipidemia, hypertension, COPD non-oxygen dependent, mild obstructive lung disease and PFTs done in 2011, history of chronic renal insufficiency, history of acute cholecystitis status post laparoscopic cholecystectomy in 2006, reducible left inguinal hernia status post the proximal copy repair in 2008, colonoscopy with polypectomy in 2012, negative for invasive carcinoma, here with community acquired pneumonia and COPD exacerbation. Sepsis Dyspnea/ Community acquired pneumonia/ Acute COPD exacerbation Based on patient's temperature, heart rate, suspected source of infection in lungs, and lactic acidosis patient did meet the criteria of severe sepsis. Patient was given ceftriaxone and azithromycin in emergency department. Patient received 3 L of normal saline in emergency department. CURB-65 score 2 points Moderate risk group: 6.8% 30-day mortality will require in patient hospitalization. EKG and troponins 3 negative. Blood cultures 2 growing gram-positive cocci and change in urine strep antigen is positive. Lactic acidosis has resolved. WBC continued to decrease. Patient is stable, planned to change antibiotics to po augmentin to compelte the course of 14 days. Planned to taper PO prednisone (short tapering) Nonspecific T-wave change T wave changes could be nonspecific. Differentials would include acute ischemia and third phases of EKG changes and pericarditis. We'll also obtain old records. Last Echo was 5 years ago as per the patient. We will obtain another echo. EKG and troponins 3 negative. has had no chest pain. Echo Normal left and right ventricular systolic function. Mild Pulmonary hypertension. No significant valvular abnormalities. -Continue monitor Patient is on subcutaneous heparin for DVT prophylaxis Patient is full code Patient is on diabetic diet Patient is on pain management Patient was discharged with recommendations to follow in outpatient with PCP and Personnel Clerks Supervisor and complete the course of Ab and tapering the prednisone. Problem List: 1. Sepsis 2. COPD exacerbation 3. Pneumonia Pain Ratin Pain Location: None Pain Goal: Pain 4 or less Pain Plan: Continue current plan Tomorrow's Labs & Rationales: CBC BEP
[2017-10-27 09:04] VITALS: BP 138/80
--- NOTE | 2017-10-27 11:21 | PN- Cardiology ---
Subjective Subjective: The patient is awake, alert, feels improved. The events of the last 24 hours as well as telemetry were reviewed. Review of Systems: The review of systems is negative for chest pains, palpitations nor lightheadedness. The remainder of the 14 point review of systems is noncontributory with the exception of above. Objective Vital Signs and I&Os Vital Signs Date Time Temp Pulse Resp B/P B/P Pulse O2 O2 Flow FiO2 Mean Ox Delivery Rate 10/27 0904 72 138/80 10/27 0800 92 Room Air 10/27 0657 97.9 60 20 138/80 92 Room Air 10/27 0000 Room Air 10/26 2316 98.6 66 16 142/80 92 Room Air 10/26 2101 64 142/82 10/26 1600 94 Room Air 10/26 1532 97.4 64 20 130/80 96 Intake & Output 10/27 1600 10/27 0800 10/27 0000 10/26 1600 10/26 0800 10/26 0000 Intake Total 240 800 680 100 Output Total Balance 240 800 680 100 Intake, Oral 240 800 680 100 Physical Exam: General: Nontoxic, no apparent distress. HEENT: Sclera and conjunctiva within normal limits, without xanthelasmas. Neck: Carotids 2+ without bruits. Respiratory: Clear to auscultation, air movement is good, without accessory respiratory muscle use. Heart: Regular rate and rhythm, without murmurs, without JVD. Abdomen: Soft, nontender, no masses, normoactive bowel sounds. Extremities: Without clubbing, cyanosis, without edema. Neuro: Nonfocal exam, strength, 5 out of 5 Skin: Within normal limits without lesions. Psych: Mood and affect: Normal Current Medications: Current Medications Sig/Sidney Start time Last Medication Dose Route Stop Time Status Admin Acetaminophen 650 MG Q6 PRN 10/23 1715 AC PO Albuterol Sulfate 3 ML Q4P PRN 10/24 1030 AC 10/26 INH 1036 Aspirin Buffered 81 MG DAILY 10/23 1817 AC 10/27 PO 0904 Atorvastatin Calcium 80 MG 1700 10/24 1700 10/26 PO 1737 Budesonide/ 2 PUF BID 10/23 2200 10/27 Formoterol Fumarate INH 0909 Ceftriaxone Sodium 1,000 MG DAILY@1530 10/24 1530 10/26 IV 1545 Escitalopram Oxalate 10 MG DAILY 10/23 1816 AC 10/27 PO 0904 Fenofibrate 145 MG DAILY 10/23 181 AC 10/27 PO 0909 Heparin Sodium 5,000 UNIT Q8 10/23 2199 AC 10/27 (Porcine) SC 0559 Insulin Aspart 0 TIDAC 10/25 1715 AC 10/26 [place] 1736 Magnesium Oxide 400 MG DAILY 10/23 1817 AC 10/27 PO 0905 Methylprednisolone 40 MG DAILY 10/26 1000 DC IV Metoprolol Tartrate 50 MG BID 10/23 2199 AC 10/27 PO 0904 Omeprazole 20 MG DAILY 10/23 1817 AC 10/27 PO 0909 Prednisone 40 MG DAILY 10/27 1000 AC 10/27 PO 0905 Results Last 48 Hrs of Labs/Mics: Laboratory Tests 10/26/17 0647: Anion Gap 12, Estimated GFR > 60, BUN/Creatinine Ratio 29.1 H, CBC w Diff NO MAN DIFF REQ, RBC 4.71, MCV 91.4, MCH 30.0, RDW 13.9, MPV 8.8, Gran % 91.4 H, Lymphocytes % 6.3 L, Monocytes % 2.2, Eosinophils % 0, Basophils % 0.1, Absolute Granulocytes 10.5 H, Absolute Lymphocytes 0.7 L, Absolute Monocytes 0.2, Absolute Eosinophils 0, Absolute Basophils 0, PUBS MCHC 32.8 L Assessment/Plan Assessment/Plan The patient is a 72-year-old gentle man with a past medical history of coronary artery disease (status post bypass surgery), diabetes mellitus, hypertension, hyperlipidemia, chronic kidney disease and COPD. He presented with severe sepsis, albeit hemodynamically stable. The source is thought likely secondary to pneumonia. Sepsis: The patient presented with severe sepsis (4/4 SIRS criteria, lactic acidosis, acute on chronic kidney injury). Blood cultures were positive for gram-positive cocci in chains and clusters, and the patient had strep pneumo antigen positive results. He has improved rapidly with antibiotics. A transthoracic echocardiogram did not reveal suspicion for endocarditis. There is no clear indication for a transesophageal echocardiogram at this time Coronary artery disease: Stable, we will continue his regular outpatient regimen. Hypertension: The patient has been well controlled as an outpatient and we will continue the current regimen and follow. Continue telemetry? No
[2017-10-27] MEDS ORDERED: PREDNISONE10 M2 PO (11:33)
[2017-10-27] MEDS ORDERED: AUGMENTIN 875-1 EACH PO (11:33)
--- NOTE | 2017-10-27 11:38 | Patient Discharge Instructions ---
Discharge Instructions General Discharge Information You were seen/treated for: Pneumonia COPD exacerbation Watch for these problems: Increased shortness of breathing, cough, bloody sputum, chest pain, dizziness or worsening of any other symptoms Special Instructions: Please follow with her PCP within one week of discharge. Please follow with your lumber sales supervisor, Dr. Orozco within 2-3 weeks of discharge. Please take your medication as ordered and completed the course of treatment. Please come back to hospital if symptoms worsen. Diet Continue normal diet: No Recommended Diet: Diabetic Activity Full Activity/No Limits: No Activity Self Limited: Yes Acute Coronary Syndrome Inclusion Criteria At DC or during hospital stay patient has or had the following: ACS DIAGNOSIS No Discharge Core Measures Meds if any: Prescribed or Continued at Discharge Meds if any: NOT Prescribed or Continued at Discharge Congestive Heart Failure Inclusion Criteria At DC or during hospital stay patient has or had the following: CHF DIAGNOSIS No Discharge Core Measures Meds if any: Prescribed or Continued at Discharge Meds if any: NOT Prescribed or Continued at Discharge Cerebrovascular accident Inclusion Criteria At DC or during hospital stay patient has or had the following: CVA/TIA Diagnosis No Discharge Core Measures Meds if any: Prescribed or Continued at Discharge Meds if any: NOT Prescribed or Continued at Discharge Venous thromboembolism Inclusion Criteria VTE Diagnosis No VTE Type NONE VTE Confirmed by (Test) NONE Discharge Core Measures - Per Current guidelines, there needs to be overlap - treatment for the first 5 days of Warfarin therapy. - If discharged on Warfarin prior to 5 days of - overlap therapy, the patient will need to be - assessed for post discharge needs including - *Post discharge parental anticoagulation - *Warfarin and/or parental anticoagulation education - *Follow up date to check INR post discharge At least 5 days overlap therapy as Inpatient No Meds if any: Prescribed or Continued at Discharge Note: Overlap Therapy is Warfarin and Anticoagulant Meds if any: NOT Prescribed or Continued at Discharge
--- NOTE | 2017-10-27 13:49 | PN- Student ---
Subjective Subjective: The patient is Jimy Tobar, who is a 72 year old male presented with a chief complaint of fatigue and weakness. Source of Information: Patient & Old records Exam Limitations: None History Of Present Illness: 72 year old male with a past medical history of Coronary Artery Disease post CABG in 2002, Diabetes, Hyperlipidemia, Hypertension, Non Oxygen dependant COPD, a history of chronic renal insufficiency. In addition has acute cholecystitis post laparoscopic cholecystecomy in 2006. History is also notable for a left reducible inguinal hernia in 2008 and a colonoscopy with a polypectomy in 2012 - which was negative for invasice carcinoma. Patient arrived to the emergency when he started experiencing head and muscle aches along with bouts of diarrhea. As such, the patient reported feeling incredibly weak and lethargic. Moreover, patient stated that he was feeling feverish with chills which prompted him to come to the emergency. Patient also reported shortness of breath on exertion accompanied with a dry cough. Patient dnies any visual changes, chest pain, dizziness, palpitations, vomiting, nausea, back & abdominal pain, rash and sick contacts. Allergies: -Bee venom protein (illicits hives, dyspnea) -Codeine -Oxycodone -Red Birch (illicits a rash) Medications: -Albuterol Sulfate (90 MCG) -Amoldipine Besylate/Benazepril (5-20 MG Capsule) -Aspirin (81 MG) -Canagliflozin (100 MG) -Cholecalciferol D3 (10,000 Unit Capsule) -Cyanocobalamin Injection (1,000 MCG/ML) -Escitalopram Oxalate (10MG tablet) -Fenofibrate Nanocrystallized (145 MG tablet) -Fluticasone/Salmeterol (250 MCG-50 MCG/DOSE) -Magnesium Oxide (400MG) -Metformin HCL (500 MG) -Metoprolol Succinate (100MG tablet) -Omeprazole (20MG tablet) -Rosuvastatin Calcium (20MG tablet) -[place] Phosphate (100MG tablet) Medical History: -Neurological = NONE -EENT = NONE -Cardiovascular = Hypertension, Hyperlipidemia, Coronary Artery Bypass Graft ( CABG) -Respiratory = Asthma, Non-Oxygen Dependant COPD -Gastrointestinal = NONE -Hepatic = NONE -Renal = NONE -Musculoskeletal = Chronic Shoulder Pain -Psychiatric = NONE -Endocrine = Diabetes -Hematology = NONE Surgical History: -Coronary Artery Bypass Graft (CABG) in 2002 Family History: -No pertinent family history Psychosocial History: Patient lives at home ETOH Use - Occasional Illicit Drug Use - Denies Illicit Drug Use Review of Systems: -Constitutional = Fever & Chills -Cardiovascular = Denies chest pain & Palpiations -Respiratory = Reports a a mild productive cough but denies shortness of breath -Gastrointestinal = Denies any abdominal pain, nausea & vomiting -Genitourinary = Denies Dysuria All other systems = Reviewed & Negative Objective Objective: Vitals: Temp = 98.4F Pulse = 68 Resp = 18 BP = 128/80 Pulse Ox = 94% Physical Exam: General Appearance Alert, Oriented X3, Cooperative, Obese Skin No Rashes HEENT Atraumatic Neck Supple Cardiovascular Regular Rate, Normal S1, Normal S2 Lungs Wheezing b/l Abdomen Normal Bowel Sounds, Soft, No Tenderness, No Hepatospenomegaly Neurological Normal Speech, Normal Tone, Sensation Intact Extremities No Tenderness/Swelling Results Results: Laboratory Tests 10/26/17 0647: Anion Gap 12, Estimated GFR > 60, BUN/Creatinine Ratio 29.1 H, CBC w Diff NO MAN DIFF REQ, RBC 4.71, MCV 91.4, MCH 30.0, RDW 13.9, MPV 8.8, Gran % 91.4 H, Lymphocytes % 6.3 L, Monocytes % 2.2, Eosinophils % 0, Basophils % 0.1, Absolute Granulocytes 10.5 H, Absolute Lymphocytes 0.7 L, Absolute Monocytes 0.2, Absolute Eosinophils 0, Absolute Basophils 0, PUBS MCHC 32.8 L 10/25/17 0910: Anion Gap 16, Estimated GFR 54 L, BUN/Creatinine Ratio 24.6, CBC w Diff NO MAN DIFF REQ, RBC 4.96, MCV 91.3, MCH 30.0, RDW 14.2, MPV 8.6, Gran % 96.3 H, Lymphocytes % 2.5 L, Monocytes % 1.2 L, Eosinophils % 0, Basophils % 0, Absolute Granulocytes 16.1 H, Absolute Lymphocytes 0.4 L, Absolute Monocytes 0.2, Absolute Eosinophils 0, Absolute Basophils 0, PUBS MCHC 32.8 L Microbiology 10/25 09 BLOOD: Blood Culture - RES 10/25 629 BLOOD: Blood Culture - RES Assessment/Plan Assessment: 72M PMH coronary artery disease status post CABG 2002, history of diabetes mellitus on oral hypoglycemic medications, hyperlipidemia, hypertension, COPD presenting with 1 week of worsening lethargy, malaise, productive cough, and fever, treated with Azithromycin as an outpatient for presumed bronchitis, here with worsening symptoms. Cough with yellow/green sputum, dyspnea, fever, decreased appetite and PO intake for the past two days. Initial labs show WBC 21, lactate 4.2, creatinine 1.5. EKG shows flat T-waves in anterior leads. Right sided rhonchi on exam, patient does not appear ill or septic, comfortable, breathing quietly. 1. Severe sepsis secondary to RLL pneumonia 2. DINESH 3. Lactic acidosis 4. Acute EKG changes Plan: - Admit to telemetry - Ceftriaxone and Azithromycin - Sputum and blood cultures, S.pneumo and Legionella antigen - Nebulizer treatments - Mucinex - Serial EKG and troponin - Cardiology consult - Trend lactate q4h until normal - IV hydration - Monitor renal function - Continue home medications, avoiding nephrotoxic meds - DVT PPx
--- NOTE | 2017-10-27 14:00 | PN- Att Addend ---
Attending MD Review Statement Attending Statement Attending MD Statement: examined this patient, discuss w/resident/PA/RAILROAD CAR REPAIRMAN, agreed w/resident/PA/RAILROAD CAR REPAIRMAN, reviewed EMR data (avail), discussed w/nursing, discussed w/ case mgmt Attending Assessment/Plan: pneumonia- pts blood culture - strept pneumo and urinary strep pneumo ag is positive. Responding to ceftriaxone and wbc resolving. repeat blood cultures negative so being dced on po augmentin for 9 days. copd- dced on po steroid taper. DINESH- resolved. see dc summary for more details. d/w pt the care plan.
--- NOTE | 2017-11-01 11:23 | Discharge Summary ---
Visit Information Visit Dates Admission Date: 10/23/17 Discharge Date: 10/27/17 Hospital Course Course Attending Physician: Felipe RIVERA,Bismark Prasad Primary Care Physician: Mayra Walker APRN Hospital Course: 72-year-old male with past medical history significant for coronary artery disease status post CABG 2002, history of diabetes mellitus on oral hypoglycemic medications, hyperlipidemia, hypertension, COPD non-oxygen dependent, mild obstructive lung disease and PFTs done in 2011, history of chronic renal insufficiency, history of acute cholecystitis status post laparoscopic cholecystectomy in 2006, reducible left inguinal hernia status post the proximal copy repair in 2008, colonoscopy with polypectomy in 2012, negative for invasive carcinoma, here with community acquired pneumonia and COPD exacerbation. Sepsis Dyspnea/ Community acquired pneumonia/ Acute COPD exacerbation Based on patient's temperature, heart rate, suspected source of infection in lungs, and lactic acidosis patient did meet the criteria of severe sepsis. Patient was given ceftriaxone and azithromycin in emergency department. Patient received 3 L of normal saline in emergency department. CURB-65 score 2 points Moderate risk group: 6.8% 30-day mortality will require in patient hospitalization. EKG and troponins 3 negative. Blood cultures 2 growing gram-positive cocci and change in urine strep antigen is positive. Lactic acidosis has resolved. WBC continued to decrease. Patient is stable, planned to change antibiotics to po augmentin to compelte the course of 14 days. Planned to taper PO prednisone (short tapering) Nonspecific T-wave change T wave changes could be nonspecific. Differentials would include acute ischemia and third phases of EKG changes and pericarditis. We'll also obtain old records. Last Echo was 5 years ago as per the patient. We will obtain another echo. EKG and troponins 3 negative. has had no chest pain. Echo Normal left and right ventricular systolic function. Mild Pulmonary hypertension. No significant valvular abnormalities. -Continued monitoring during hospitalization Patient was on subcutaneous heparin for DVT prophylaxis Patient was full code Patient was on diabetic diet Patient was on pain management Patient was discharged with recommendations to follow in outpatient with PCP and Tow Truck Dispatcher and complete the course of Ab and tapering the prednisone. Allergies: Coded Allergies: bee venom protein (honey bee) (HIVES, DYSPNEA 10/23/17) codeine (UNKNOWN 10/23/17) oxycodone (From PERCOCET) (UNKNOWN 10/23/17) Uncoded Allergies: RED BIRCH (RASH 09/20/13) Disposition Summary Disposition Principal Diagnosis: Sepsis Community acquired pneumonia Additional Diagnosis: COPD exacerbation NSTEMI Discharge Disposition: home or self care Discharge Instructions General Discharge Information Code Status: Full Code Patient's Diet: Diabetic Patient's Activity: Self limtied Follow-Up Instructions/Appts: Please follow with her PCP within one week of discharge. Please follow with your portable pinch riveter, Dr. Orozco within 2-3 weeks of discharge. Please take your medication as ordered and completed the course of treatment. Please come back to hospital if symptoms worsen. Medications at Discharge Discharge Medications: Continue taking these medications: Escitalopram Oxalate (Escitalopram Oxalate) 10 MG TABLET 1 Tablet ORAL DAILY Comments: Last Taken: 10/27/17 Time: 9:00 AM Metoprolol Succinate (Metoprolol Succinate) 100 MG TAB.ER.24H 1 Tablet ORAL DAILY Comments: Last Taken: 10/27/17 Time: 9:00 AM Amlodipine Besylate/Benazepril (Lotrel 5-20 MG Capsule) 5 MG-20 MG CAPSULE 1 Capsule ORAL DAILY Comments: Last Taken: NOT GIVEN IN HOSPITAL Time: Fenofibrate Nanocrystallized (Fenofibrate) 145 MG TABLET 1 Tablet ORAL DAILY Comments: Last Taken: 10/27/17 Time: 9:00 AM Sitagliptin Phosphate (Januvia) 100 MG TABLET 1 Tablet ORAL DAILY Comments: Last Taken: NOT GIVEN IN HOSPITAL Time: Canagliflozin (Invokana) 100 MG TABLET 1 Tablet ORAL DAILY Comments: Last Taken: NOT GIVEN IN HOSPITAL Time: Fluticasone/Salmeterol (Advair 250-50 Diskus) 250 MCG-50 MCG/DOSE BLST.W.DEV 1 PUFF Inhale through mouth as needed for ASTHMA Comments: Last Taken: 10/27/17 (RECEIVED SYMBICORT) Time: Aspirin (Ecotrin*) 81 MG TABLET.DR 1 Tablet ORAL DAILY Comments: Last Taken: 10/27/17 Time: 9:00 AM Rosuvastatin Calcium (Crestor) 20 MG TABLET 1 Tablet ORAL DAILY Comments: Last Taken: 10/26/17 Time: 5:30 PM Metformin HCl (Metformin HCl ER) 500 MG TAB.ER.24H 1 Tablet ORAL 4XDAILY Comments: Last Taken: NOT GIVEN IN HOSPITAL Time: Albuterol Sulfate (Ventolin Hfa) 90 MCG HFA.AER.AD 2 Puff Inhale through mouth As Directed as needed for RESP Comments: Last Taken: NOT GIVEN IN HOSPITAL Time: Cholecalciferol (Vitamin D3) (Vitamin D) 10,000 UNIT CAPSULE 1 Capsule ORAL DAILY Comments: Last Taken: NOT GIVEN IN HOSPITAL Time: Omeprazole (Omeprazole) 20 MG CAPSULE.DR 1 Capsule ORAL DAILY Comments: Last Taken: 10/27/17 Time: 9:00 AM Magnesium Oxide (Magnesium) 400 MG CAPSULE 1 Capsule ORAL DAILY Comments: Last Taken: 10/27/17 Time: 9:00 AM Cyanocobalamin (Vitamin B-12) (Cyanocobalamin Injection) 1,000 MCG/ML VIAL 1 Milliliters INTRAMUSC EVERY 2 WEEKS Start taking the following new medications: Amoxicillin/Potassium Clav (Augmentin 875-125 Tablet) 875 MG-125 MG TABLET 1 Tablet ORAL TWICE DAILY Qty = 18 No Refills Comments: Last Taken: NOT GIVEN IN HOSPITAL Time: Prednisone (Prednisone) 10 MG TABLET 0 ORAL TAPER Qty = 6 No Refills Instructions: Please take: 3 pills on 10/28/17 2 pills on 10/29/17 1 pill on 10/30/17 Comments: Please take: 3 pills on 10/28/17 2 pills on 10/29/17 1 pill on 10/30/17 Last Taken: 10/27/17 Time: 9:00 AM Copies To: Mayra Walker APRN, MD Review Statement Documenting Attending: Bismark Wang MD
== END 2017-10-27 14:40 | DRG 871 ==
LOC: ERH 12:55 → 1NO 16:00 → ERHI 16:00 → ENRESERV 16:21 → ENTRNSPT 17:15 → 1NO 17:41 → CMPTRNSPT 18:02 → 1NO 10-24 08:33 → ENPENDDIS 10-27 14:03 → ENTRNSPT 10-27 14:21 → EDTRNSPT 10-27 14:38 → EDTRNSPTSTS 10-27 14:38 → 1NO 10-27 14:40 → CMPTRNSPT 10-27 15:13
PROVIDERS: Internal Medicine; Internal Medicine Adolescent Medicine; Physician Assistant; Student in an Organized Health Care Education/Training Program
DX: A40.3 Sepsis due to Streptococcus pneumoniae (principal); R65.20 Severe sepsis without septic shock; I21.A1 Myocardial infarction type 2; J13 Pneumonia due to Streptococcus pneumoniae; N17.9 Acute kidney failure, unspecified; E87.2 Acidosis; J44.1 Chronic obstructive pulmonary disease with (acute) exacerbation; J44.0 Chronic obstructive pulmonary disease with (acute) lower respiratory infection; E11.9 Type 2 diabetes mellitus without complications; Z79.84 Long term (current) use of oral hypoglycemic drugs; E66.9 Obesity, unspecified; Z68.29 Body mass index [BMI] 29.0-29.9, adult; N18.9 Chronic kidney disease, unspecified; I12.9 Hypertensive chronic kidney disease with stage 1 through stage 4 chronic kidney disease, or unspecified chronic kidney disease; I27.29 Other secondary pulmonary hypertension; Z95.1 Presence of aortocoronary bypass graft; E78.5 Hyperlipidemia, unspecified; Z87.891 Personal history of nicotine dependence
CPT/HCPCS: 1NP; 36415; 71046; 81001; 82436; 87040; 87070; 87147; 87449; 87450; 87804; 87804-59; 93005; 93010; 93306; 96374; 96375; 99291; J0456; J0696; J1644; J2405; J2920; J2930; J3490; J7040; J7060